=== PATIENT | male | born 1970 | race African-American/Black ===

== ENCOUNTER 2017-06-24 09:47 | Emergency (ER) | payer OTHER, SELFPAY ==
--- NOTE | 2017-06-24 12:27 | EDPHYS ---
Physician Documentation [facility] Name: Tevin Chacon III Age: 46 yrs Sex: Male : 1970 Arrival Date: 06/24/2017 Time: 09:50 Bed 11 Private MD: Suzie De Leon F ED Physician Alfredo Dick HPI: 06/24 11:00 This 46 yrs old Black Male presents to ER via Ambulatory with complaints of Knee Pain, cp Leg Swelling. 11:00 The patient presents with pain, that is acute, swelling, tenderness. The complaints cp affect the left knee. Context: resulted from twisting of the extremity, getting out car, the patient can fully bear weight, the patient is able to ambulate, with mild difficulty. 11:00 Onset: The symptoms/episode began/occurred 2 day(s) ago. Associated signs and symptoms: cp Pertinent negatives calf tenderness, fever, numbness, warmth. Treatment prior to arrival includes: no previous treatment. Historical: - Allergies: 10:19 No Known Allergies; aj - Home Meds: 10:19 None [Active]; aj - PMHx: 10:19 Sickle Cell; aj - PSHx: 10:19 None; aj - Immunization history:: Adult Immunizations up to date. - Social history:: Smoking status: Patient/guardian denies using tobacco. ROS: 11:05 Constitutional: Negative for body aches, chills, fever, poor PO intake. cp 11:05 Eyes: Negative for injury, pain, redness, and discharge. cp 11:05 ENT: Negative for drainage from ear(s), ear pain, sore throat, difficulty swallowing, difficulty handling secretions. 11:05 Cardiovascular: Negative for chest pain, edema, palpitations. 11:05 Respiratory: Negative for cough, shortness of breath, wheezing. 11:05 Abdomen/GI: Negative for abdominal pain, nausea, vomiting, and diarrhea, constipation, black/tarry stool, rectal bleeding. 11:05 Back: Negative for pain at rest, pain with movement, radiated pain. 11:05 MS/extremity: Positive for pain, swelling, of the left knee, Negative for decreased range of motion, warmth. 11:05 Skin: Negative for cellulitis, rash. 11:05 Neuro: Negative for numbness, tingling. 11:05 All other systems are negative. Exam: 11:12 Constitutional: The patient appears in no acute distress, alert, awake, non-toxic, well cp developed, well nourished. 11:12 Head/Face: Normocephalic, atraumatic. cp 11:12 Eyes: Periorbital structures: appear normal, Conjunctiva: normal, no exudate, no injection, Sclera: no appreciated abnormality, Lids and lashes: appear normal, bilaterally. 11:12 ENT: External ear(s): are unremarkable, Nose: is normal, Mouth: is normal, Posterior pharynx: is normal, airway is patent. 11:12 Chest/axilla: Inspection: normal. 11:12 Cardiovascular: Rate: normal. 11:12 Respiratory: the patient does not display signs of respiratory distress, Respirations: normal, no use of accessory muscles, no retractions, no splinting, no tachypnea, labored breathing, is not present. 11:12 Abdomen/GI: Exam negative for discomfort, distension, guarding, Inspection: abdomen appears normal. 11:12 Back: pain, is absent, ROM is normal. 11:12 Musculoskeletal/extremity: Joints: All joints are normal except the left knee displays swelling, tenderness, Weight bearing: able to fully bear weight. 11:12 Skin: cellulitis, is not appreciated, no rash present. Vital Signs: 10:19 BP 118 / 79; Pulse 88; Resp 17; Temp 98.0; Pulse Ox 95% on R/A; Weight 124.74 kg; aj Height 6 ft. 4 in. (193.04 cm); Pain 4/10; 12:40 BP 124 / 74; Pulse 89; Resp 16; Pulse Ox 97% on R/A; Pain 4/10; iw 10:19 Body Mass Index 33.47 (124.74 kg, 193.04 cm) aj MDM: 10:37 Patient medically screened. cp 11:00 Differential diagnosis: dislocation, closed fracture, DVT, septic joint, effusion. cp 12:25 Data reviewed: vital signs, nurses notes, radiologic studies, plain films. cp 12:25 Test interpretation: by ED physician or midlevel provider: plain radiologic studies. cp Counseling: I had a detailed discussion with the patient and/or guardian regarding: the historical points, exam findings, and any diagnostic results supporting the discharge/admit diagnosis, radiology results, the need for outpatient follow up, a orthopedic surgeon, to return to the emergency department if symptoms worsen or persist or if there are any questions or concerns that arise at home. 06/24 10:51 Order name: XRAY Knee LEFT 3 view cp Administered Medications: No medications were administered Disposition: 06/24/17 12:26 Discharged to Home. Impression: Pain in left knee. - Condition is Stable. - Discharge Instructions: Elastic Bandage and RICE, Knee Pain. - Prescriptions for Tramadol 50 mg Oral Tablet - take 1 tablet by ORAL route every 8 hours as needed; 20 tablet. - Work release form, Medication Reconciliation Form, Thank You Letter, Antibiotic Education, Prescription Opioid Use form. - Follow up: Jonathan Peres MD; When: 2 - 3 days; Reason: Recheck today's complaints. - Problem is new. - Symptoms are unchanged. Addendum: 06/25/2017 22:19 Co-signature as Attending Physician, Alfredo Dick MD I agree with the assessment and k dr plan of care. Signatures: Dispatcher [employer] EDNE Izabela Lorenz, RN RN Alfredo Chavez MD MD kdr Pam Alves RN RN iw Adam Whaley PA PA cp Corrections: (The following items were deleted from the chart) 06/24 12:42 12:26 06/24/2017 12:26 Discharged to Home. Impression: Pain in left knee. Condition is iw Stable. Forms are Medication Reconciliation Form, Thank You Letter, Antibiotic Education, Prescription Opioid Use. Follow up: Jonathan Peres; When: 2 - 3 days; Reason: Recheck today's complaints. Problem is new. Symptoms are unchanged. cp
--- NOTE | 2017-06-24 12:27 | ER ---
Nurse's Notes [facility] Name: Tevin Chacon III Age: 46 yrs Sex: Male : 1970 Arrival Date: 06/24/2017 Time: 09:50 Bed 11 Private MD: Suzie De Leon F Diagnosis: Pain in left knee Presentation: 06/24 10:18 Presenting complaint: Patient states: Left knee pain and swelling since Thursday. Patient aj reported feeling pain and swelling to knee after getting out of vehicle. Reports popping in left knee for 1 week. Transition of care: patient was not received from another setting of care. Onset of symptoms was June 18, 2017. Care prior to arrival: None. 10:18 Method Of Arrival: Ambulatory aj 10:18 Acuity: SALMA 4 aj 12:42 Initial Sepsis Screen: Does the patient meet any 2 criteria? No. Patient's initial iw sepsis screen is negative. Does the patient have a suspected source of infection? No. Patient's initial sepsis screen is negative. Triage Assessment: 10:19 General: Appears in no apparent distress. comfortable, Behavior is calm, cooperative, aj appropriate for age. Pain: Complains of pain in left knee. Pain: Pain currently is 4 out of 10 on a pain scale. Neuro: Level of Consciousness is awake, alert, obeys commands, Oriented to person, place, time, situation, Appropriate for age. Respiratory: Airway is patent Respiratory effort is even, unlabored, Respiratory pattern is regular, symmetrical. Derm: Skin is intact, is healthy with good turgor, Skin is pink, warm \T\ dry. normal. Musculoskeletal: Reports pain in left knee. Historical: - Allergies: 10:19 No Known Allergies; aj - Home Meds: 10:19 None [Active]; aj - PMHx: 10:19 Sickle Cell; aj - PSHx: 10:19 None; aj - Immunization history:: Adult Immunizations up to date. - Social history:: Smoking status: Patient/guardian denies using tobacco. Screenin:43 Abuse screen: Denies threats or abuse. Denies injuries from another. Nutritional iw screening: No deficits noted. Tuberculosis screening: No symptoms or risk factors identified. Fall Risk None identified. Assessment: 10:42 General: Appears in no apparent distress. Behavior is calm, cooperative. Pain: iw Complains of pain in left knee. Neuro: Level of Consciousness is awake, alert, obeys commands, Oriented to person, place, time, Tax Compliance Agent are equal bilaterally Moves all extremities. Full function. Cardiovascular: Patient's skin is warm and dry. Respiratory: Respiratory effort is even, unlabored, Respiratory pattern is regular. Derm: Skin is normal. Musculoskeletal: Range of motion: intact in all extremities, Reports pain in left knee popping in left knee X 1 week. 12:40 Reassessment: Patient appears in no apparent distress at this time. Patient and/or iw family updated on plan of care and expected duration. Pain level reassessed. Patient is alert, oriented x 3, equal unlabored respirations, skin warm/dry/pink. Vital Signs: 10:19 BP 118 / 79; Pulse 88; Resp 17; Temp 98.0; Pulse Ox 95% on R/A; Weight 124.74 kg; aj Height 6 ft. 4 in. (193.04 cm); Pain 4/10; 12:40 BP 124 / 74; Pulse 89; Resp 16; Pulse Ox 97% on R/A; Pain 4/10; iw 10:19 Body Mass Index 33.47 (124.74 kg, 193.04 cm) aj ED Course: 09:50 Patient arrived in ED. rg4 09:51 Suzie De Leon MD is Private Physician. rg4 10:19 Triage completed. aj 10:19 Arm band placed on left wrist. Patient placed in waiting room, Patient notified of wait aj time. 10:19 Patient has correct armband on for positive identification. iw 10:34 Pam Alves, LYNSEY is Primary Nurse. iw 10:37 Adam Whaley PA is PHCP. cp 10:37 Alfredo Dick MD is Attending Physician. cp 11:56 XRAY Knee LEFT 3 view In Process Unspecified. EDMS 12:25 Jonathan Peres MD is Referral Physician. cp 12:41 No provider procedures requiring assistance completed. Patient did not have IV access iw during this emergency room visit. Administered Medications: No medications were administered Outcome: 12:26 Discharge ordered by MD. cp 12:41 Discharged to home ambulatory. iw 12:41 Condition: good 12:41 Discharge instructions given to patient, Instructed on discharge instructions, follow up and referral plans. medication usage, Demonstrated understanding of instructions, follow-up care, medications, Prescriptions given X 1. 12:42 Patient left the ED. iw Signatures: Dispatcher [employer] Izablea Werner RN RN aj Williams, Irene, RN RN iw Page, Corey, PA PA cp Garcia, Rubi rg4
[2017-06-24 12:45] VITALS: TEMP 98
[2017-06-24 12:47] VITALS: BP 124/74; O2SAT 97
--- NOTE | 2017-06-24 12:47 | RAD REPORT ---
EXAM DESCRIPTION: RAD - Knee Left 3 View - 06/24/2017 11:54 am CLINICAL HISTORY: Knee pain and swelling COMPARISON: July 2011 FINDINGS: No fracture is identifiable. No dislocation or periosteal reaction. Medial compartment дмитрий rowing is present with small marginal spurs identifiable. The medial compartment changes are progress kj from 2012. Overall increased bone density is present matching the previously detailed sickle cell changes. No one single or defined area of bone infarction seen. Moderate joint effusion is present.N o air or foreign body in the soft tissues. Patella marginal spurring changes are new from comparison. No air or foreign body in the soft tissues. IMPRESSION: Sickle cell changes to the bones of the left knee. No acute bone process identifiable. Degenerative changes in the medial compartment and along the patella articular margins are moderate f or age and progressive from 2012. Moderate joint effusion. Clinical concerns for internal derangement or occult bony injury could be further assessed with MR im aging.
== END 2017-06-24 12:42 | disposition home or self-care (01) ==
LOC: ER 09:47
DX: M25.562 Pain in left knee (principal)
CPT/HCPCS: 99283

== ENCOUNTER 2018-03-20 23:52 | Inpatient (IN) | payer BC, OTHER ==
[2018-03-21] MEDS ORDERED: MORPHINE 4 MG/ML SYR ONE (00:17)
[2018-03-21] MEDS ORDERED: ONDANSETRON 4 MG/2 ML VIAL ONE (00:17)
[2018-03-21] MEDS ORDERED: ASPIRIN 81 MG CHEWABLE TABLET ONE ×2 (00:17→00:23)
[2018-03-21] MEDS ORDERED: NA CHLORIDE 0.9% 1,000 ML ONE (00:17)
[2018-03-21 00:18] LABS: Absolute Lymphocytes (CBC) 5.1 K/uL (0.7-4.9); Absolute Monocytes 1.6 K/uL (0.1-1.3); Absolute Neutrophil 9.3 K/uL (1.8-8.0); Basophils % 0.5 % (0-1.3); Hematocrit 31.9 % (39.6-49.0); Lymphocytes % 31.2 % (15.3-44.8); MPV 9.3 fL (7.6-11.3); Monocytes % 9.7 % (3.3-12.3); RBC Red Blood Cell Count 3.98 M/uL (4.33-5.43)
[2018-03-21 00:22] LABS: Protime INR 1.04
[2018-03-21 00:42] LABS: ALT/SGPT 32 U/L (12-78); AST/SGOT 38 U/L (15-37); Albumin 3.8 g/dL (3.4-5.0); Alkaline Phosphatase 132 U/L (45-117); BUN Blood Urea Nitrogen 10 mg/dL (7-18); Bicarbonate 27 mmol/L (21-32); Bilirubin Direct 0.5 mg/dL (0-0.2); Bilirubin Total 3.2 mg/dL (0.2-1.0); Glucose Level 120 mg/dL (74-106); Lipase 179 U/L (73-393); Magnesium 2.3 mg/dL (1.8-2.4); NT PRO-BNP 22 pg/mL (<125); Potassium 4.1 mmol/L (3.5-5.1); Sodium Level 144 mmol/L (136-145); Troponin (Emerg Dept Use Only) < 0.02 ng/mL (0.0-0.045)
[2018-03-21 00:50] LABS: Platelet Estimate ADEQ
[2018-03-21 00:51] LABS: Anisocytosis 2+; Blood Morphology Comment NOTED (NOT SEEN); Platelets, Giant 1+; Poikilocytosis 1+; Target Cells 1+
[2018-03-21 02:53] LABS: Urine Blood NEGATIVE (NEG); Urine Glucose NEGATIVE (NEG); Urine Protein NEGATIVE (NEG); Urine Specific Gravity 1.015 (1.005-1.030); Urine pH 6.5 (5.0-7.0)
[2018-03-21 03:01] LABS: Barbiturates NEGATIVE (NEGATIVE); Benzodiazepines NEGATIVE (NEGATIVE); Cocaine NEGATIVE (NEGATIVE); METHAMPHETAM NEGATIVE (NEGATIVE); Methadone NEGATIVE (NEGATIVE); Opiates NEGATIVE (NEGATIVE); Phencyclidine NEGATIVE (NEGATIVE); THC Cannibis NEGATIVE (NEGATIVE)
[2018-03-21] MEDS ORDERED: PROMETHAZINE 25 MG/ML VIAL ONE (03:03)
[2018-03-21] MEDS ORDERED: HYDROMORPHONE HCL 1 MG/ML INJ ONE (03:03)
--- NOTE | 2018-03-21 03:36 | EDPHYS ---
Physician Documentation [facility] Name: Tevin Chacon III Age: 47 yrs Sex: Male : 1970 Arrival Date: 03/20/2018 Time: 23:54 Bed 5 Private MD: ED Physician Tacho Anderson HPI: 03/21 00:05 This 47 yrs old Black Male presents to ER via Ambulatory with unknown complaint. pkl 00:05 The patient or guardian reports chest pain that is located primarily in the substernal pkl area. Onset: just prior to arrival, 1 hour(s) ago. The pain does not radiate. Associated signs and symptoms: Pertinent positives: shortness of breath. The chest pain is described as a pressure. The patient has not experienced similar symptoms in the past. Historical: - Allergies: 03/20 23:59 No Known Allergies; la1 - Home Meds: 23:59 None [Active]; la1 - PMHx: 23:59 Sickle Cell; la1 - PSHx: 23:59 None; la1 - Immunization history:: Adult Immunizations up to date. - Social history:: Smoking status: Patient/guardian denies using tobacco. - Ebola Screening: : No symptoms or risks identified at this time. ROS: 03/21 00:05 Eyes: Negative for injury, pain, redness, and discharge, ENT: Negative for injury, pkl pain, and discharge, Neck: Negative for injury, pain, and swelling. Cardiovascular: Positive for chest pain. Respiratory: Positive for shortness of breath. Abdomen/GI: Negative for abdominal pain, nausea, vomiting, and diarrhea. Back: Negative for acute changes. : Negative for urinary symptoms. MS/extremity: Negative for acute changes. Skin: Negative for rash. Neuro: Negative for altered mental status. Exam: 00:05 Head/Face: Normocephalic, atraumatic. Eyes: Pupils equal round and reactive to light, pkl extra-ocular motions intact. Lids and lashes normal. Conjunctiva and sclera are non-icteric and not injected. Cornea within normal limits. Periorbital areas with no swelling, redness, or edema. ENT: Nares patent. No nasal discharge, no septal abnormalities noted. Tympanic membranes are normal and external auditory canals are clear. Oropharynx with no redness, swelling, or masses, exudates, or evidence of obstruction, uvula midline. Mucous membranes moist. Neck: Trachea midline, no thyromegaly or masses palpated, and no cervical lymphadenopathy. Supple, full range of motion without nuchal rigidity, or vertebral point tenderness. No Meningismus. Chest/axilla: Normal chest wall appearance and motion. Nontender with no deformity. No lesions are appreciated. Cardiovascular: Regular rate and rhythm with a normal S1 and S2. No gallops, murmurs, or rubs. Normal PMI, no JVD. No pulse deficits. Respiratory: Lungs have equal breath sounds bilaterally, clear to auscultation and percussion. No rales, rhonchi or wheezes noted. No increased work of breathing, no retractions or nasal flaring. Abdomen/GI: Soft, non-tender, with normal bowel sounds. No distension or tympany. No guarding or rebound. No evidence of tenderness throughout. Back: No spinal tenderness. No costovertebral tenderness. Full range of motion. Skin: Warm, dry with normal turgor. Normal color with no rashes, no lesions, and no evidence of cellulitis. MS/ Extremity: Pulses equal, no cyanosis. Neurovascular intact. Full, normal range of motion. Neuro: Awake and alert, GCS 15, oriented to person, place, time, and situation. Cranial nerves II-XII grossly intact. Motor strength 5/5 in all extremities. Sensory grossly intact. Cerebellar exam normal. Normal gait. Vital Signs: 03/20 23:59 BP 158 / 95; Pulse 85; Resp 18; Temp 98.7; Pulse Ox 96% on R/A; Weight 122.47 kg; la1 Height 6 ft. 4 in. (193.04 cm); Pain 9/10; 02 00:17 BP 150 / 86; Pulse 89; Resp 20; Pulse Ox 100% on 2 lpm NC; tl2 01:33 BP 123 / 73; Pulse 80; Resp 18; Pulse Ox 95% on R/A; tl2 02:16 BP 129 / 87; Pulse 89; Resp 19; Pulse Ox 96% on R/A; tl2 03:01 BP 146 / 88; Pulse 80; Resp 18; Pulse Ox 96% on R/A; tl2 03/20 23:59 Body Mass Index 32.87 (122.47 kg, 193.04 cm) la1 MDM: 03/20 23:54 Patient medically screened. pk 03/21 02:58 Data reviewed: vital signs, nurses notes, lab test result(s), EKG, radiologic studies, pkl plain films. 06:17 ED course: Left message in Dr. De Leon's answering machine regarding admission ( pk Observation ). 03/21 00:00 Order name: Basic Metabolic Panel; Complete Time: 00:43 03/21 00:00 Order name: CBC with Diff; Complete Time: 03:00 03/21 00:00 Order name: LFT's; Complete Time: 00:43 03/21 00:00 Order name: Magnesium; Complete Time: 00:43 03/21 00:00 Order name: NT PRO-BNP; Complete Time: 00:43 03/21 00:00 Order name: PT-INR; Complete Time: 00:44 03/21 00:00 Order name: Troponin (emerg Dept Use Only); Complete Time: 00:43 03/21 00:04 Order name: UDS; Complete Time: 03:14 pkl 03/21 00:08 Order name: Retic Count [facility] 03/21 00:31 Order name: D-Dimer; Complete Time: 00:44 EDMS 02 00:31 Order name: Lipase; Complete Time: 00:43 EDMS 02 00:31 Order name: Retic Count; Complete Time: 03:00 EDMS 02 00:00 Order name: XRAY Chest (1 view) 03/21 00:00 Order name: EKG; Complete Time: 00:03 03/21 00:00 Order name: Cardiac monitoring; Complete Time: 00:01 02 00:00 Order name: EKG - Nurse/Tech; Complete Time: 00:01 03/21 00:00 Order name: IV Saline Lock; Complete Time: 00:01 03/21 00:45 Order name: CT Chest For PE Angio pk 03/21 00:48 Order name: Manual Differential; Complete Time: 03:00 EDMS 03/21 02:44 Order name: Troponin (emerg Dept Use Only); Complete Time: 03:15 tl2 03/21 02:49 Order name: Urine Dipstick--Ancillary (enter results); Complete Time: 03:00 03/21 07:15 Order name: Troponin I EDPR 03/21 00:00 Order name: Labs collected and sent; Complete Time: 00: 03/21 00:00 Order name: O2 Per Protocol; Complete Time: 00: 03/21 00:00 Order name: O2 Sat Monitoring; Complete Time: 00: 03/21 02:44 Order name: EKG - Nurse/Tech; Complete Time: 02:56 tl2 Administered Medications: 00:15 Drug: NS 0.9% 1000 ml Route: IV; Rate: 100 ml/hr; Site: right antecubital; tl2 05:04 Follow up: IV Status: Infusion continued upon admission tl2 00:15 Drug: Aspirin 162 mg Route: PO; tl2 01:00 Follow up: Response: No adverse reaction tl2 00:16 Drug: morphine 4 mg Route: IVP; Site: right antecubital; tl2 01:00 Follow up: Response: No adverse reaction; Pain is decreased tl2 00:16 Drug: Zofran 4 mg Route: IVP; Site: right antecubital; tl2 01:00 Follow up: Response: No adverse reaction; Nausea is decreased tl2 02:56 Drug: Dilaudid 1 mg Route: IVP; Site: right antecubital; tl2 03:30 Follow up: Response: No adverse reaction; Pain is decreased tl2 02:58 Drug: Phenergan 12.5 mg Route: IVP; Site: right antecubital; tl2 03:30 Follow up: Response: No adverse reaction; Nausea is decreased tl2 Disposition: 03/21/18 03:36 Hospitalization ordered by Suzie De Leon for Observation. Preliminary diagnosis is Chest pain. Sickle cell crisis. - Bed requested for Telemetry/MedSurg (observation). - Status is Observation. sv - Condition is Stable. - Problem is new. - Symptoms are unchanged. UTI on Admission? No Signatures: Dispatcher [employer] EDPR Halle Levi RN RN kl Verde, Stephanie, RN RN sv Lam, Pin, MD MD pkl Chretien, Felicia, RN RN fc Attema, Lee, RN RN la1 Ladonna Gloria RN RN tl2 Corrections: (The following items were deleted from the chart) 00:31 00:04 D-DIMER+COAG.LAB.BRZ ordered. EDMS EDMS 00:31 00:08 LIPASE+C.LAB.BRZ ordered. EDMS EDMS 04:22 03:36 Hospitalization Ordered by Suzie De Leon MD for Observation. Preliminary fc diagnosis is Chest pain. Sickle cell crisis. Bed requested for Telemetry/MedSurg (observation). Status is Observation. Condition is Stable. Problem is new. Symptoms are unchanged. UTI on Admission? No. pkl 06:33 04:22 03/21/2018 03:36 Hospitalization Ordered by Suzie De Leon MD for Observation. kl Preliminary diagnosis is Chest pain. Sickle cell crisis. Bed requested for [facility] ER HOLD. Status is Observation. Condition is Stable. Problem is new. Symptoms are unchanged. UTI on Admission? No. fc 07:50 06:33 03/21/2018 03:36 Hospitalization Ordered by Suzie De Leon MD for Observation. sv Preliminary diagnosis is Chest pain. Sickle cell crisis. Bed requested for Telemetry/MedSurg (observation). Status is Observation. Condition is Stable. Problem is new. Symptoms are unchanged. UTI on Admission? No. kl
--- NOTE | 2018-03-21 03:36 | ER ---
Nurse's Notes [facility] Name: Tevin Chacon III Age: 47 yrs Sex: Male : 1970 Arrival Date: 03/20/2018 Time: 23:54 Bed 5 Private MD: Diagnosis: Chest pain. Sickle cell crisis Presentation: 03/20 23:58 Presenting complaint: Patient states: onset of chest pain and lower back pain that la1 started 35 minutes ago, pt states the back pain is how it feels when his sickle crisis is starting but the chest pain is new and different. Transition of care: patient was not received from another setting of care. Onset of symptoms was March 20, 2018. Risk Assessment: Do you want to hurt yourself or someone else? Patient reports no desire to harm self or others. Initial Sepsis Screen: Does the patient meet any 2 criteria? No. Patient's initial sepsis screen is negative. Does the patient have a suspected source of infection? No. Patient's initial sepsis screen is negative. Care prior to arrival: None. 23:58 Method Of Arrival: Ambulatory la1 23:58 Acuity: SALMA 2 la1 Historical: - Allergies: 23:59 No Known Allergies; la1 - Home Meds: 23:59 None [Active]; la1 - PMHx: 23:59 Sickle Cell; la1 - PSHx: 23:59 None; la1 - Immunization history:: Adult Immunizations up to date. - Social history:: Smoking status: Patient/guardian denies using tobacco. - Ebola Screening: : No symptoms or risks identified at this time. Screenin/10 00:17 Abuse screen: Denies threats or abuse. Nutritional screening: No deficits noted. tl2 Tuberculosis screening: No symptoms or risk factors identified. Fall Risk None identified. Assessment: 00:17 General: Appears in no apparent distress. uncomfortable, Behavior is cooperative, tl2 appropriate for age, restless. Pain: Complains of pain in xyphoid area and mid-sternal area Pain does not radiate. Pain currently is 9 out of 10 on a pain scale. Pain: Complains of pain in epigastric, low back. Neuro: Level of Consciousness is awake, alert, obeys commands, Oriented to person, place, time, situation. Cardiovascular: Rhythm is sinus rhythm Chest pain is described as diffuse, quality is sharp, is located in epigastric area substernal area. Respiratory: Airway is patent Respiratory effort is even, unlabored, Respiratory pattern is regular, symmetrical. GI: Reports nausea. : No signs and/or symptoms were reported regarding the genitourinary system. Derm: Skin is pink, warm \T\ dry. 01:34 Reassessment: Patient appears in no apparent distress at this time. Patient and/or tl2 family updated on plan of care and expected duration. Pain level reassessed. Patient is alert, oriented x 3, equal unlabored respirations, skin warm/dry/pink. Patient states feeling better. 02:16 Reassessment: Patient appears in no apparent distress at this time. Patient and/or tl2 family updated on plan of care and expected duration. Pain level reassessed. Patient is alert, oriented x 3, equal unlabored respirations, skin warm/dry/pink. 02:45 Reassessment: Pt c/o pain after returning from bathroom, notified, new order see APR.tl2 Vital Signs: 03/20 23:59 BP 158 / 95; Pulse 85; Resp 18; Temp 98.7; Pulse Ox 96% on R/A; Weight 122.47 kg; la1 Height 6 ft. 4 in. (193.04 cm); Pain 9/10; 02 00:17 BP 150 / 86; Pulse 89; Resp 20; Pulse Ox 100% on 2 lpm NC; tl2 01:33 BP 123 / 73; Pulse 80; Resp 18; Pulse Ox 95% on R/A; tl2 02:16 BP 129 / 87; Pulse 89; Resp 19; Pulse Ox 96% on R/A; tl2 03:01 BP 146 / 88; Pulse 80; Resp 18; Pulse Ox 96% on R/A; tl2 02 23:59 Body Mass Index 32.87 (122.47 kg, 193.04 cm) la1 Vitals: 00:17 Cardiac Rhythm Assessment Sinus rhythm. tl2 01:33 Cardiac Rhythm Assessment Sinus rhythm. tl2 ED Course: 03/20 23:54 Patient arrived in ED. tl2 23:54 Tacho Anderson MD is Attending Physician. pkl 23:59 Triage completed. la1 23:59 Arm band placed on left wrist. EKG completed in triage. Results shown to MD. la1 03/21 00:00 Inserted saline lock: 20 gauge in right antecubital area, using aseptic technique. lp1 Blood collected. 00:01 Ladonna Gloria, RN is Primary Nurse. tl2 00:17 Patient has correct armband on for positive identification. Placed in gown. Bed in low tl2 position. Call light in reach. Side rails up X 1. Adult w/ patient. 00:22 X-ray completed. Portable x-ray completed in exam room. Patient tolerated procedure sg4 well. 00:30 XRAY Chest (1 view) In Process Unspecified. EDMS 00:43 Notified ED physician of a critical lab result(s). d dimer 3666. fc 01:[address] via stretcher. kw1 01:18 CT completed. Patient tolerated procedure well. Patient moved back from CT. kw1 01:31 CT Chest For PE Angio In Process Unspecified. EDMS 01:31 CT completed. Patient tolerated procedure well. Patient moved back from CT. kw1 03:35 Suzie De Leon MD is Hospitalizing Provider. pkl 05:03 No provider procedures requiring assistance completed. Patient admitted, IV remains in tl2 place. Administered Medications: 00:15 Drug: NS 0.9% 1000 ml Route: IV; Rate: 100 ml/hr; Site: right antecubital; tl2 05:04 Follow up: IV Status: Infusion continued upon admission tl2 00:15 Drug: Aspirin 162 mg Route: PO; tl2 01:00 Follow up: Response: No adverse reaction tl2 00:16 Drug: morphine 4 mg Route: IVP; Site: right antecubital; tl2 01:00 Follow up: Response: No adverse reaction; Pain is decreased tl2 00:16 Drug: Zofran 4 mg Route: IVP; Site: right antecubital; tl2 01:00 Follow up: Response: No adverse reaction; Nausea is decreased tl2 02:56 Drug: Dilaudid 1 mg Route: IVP; Site: right antecubital; tl2 03:30 Follow up: Response: No adverse reaction; Pain is decreased tl2 02:58 Drug: Phenergan 12.5 mg Route: IVP; Site: right antecubital; tl2 03:30 Follow up: Response: No adverse reaction; Nausea is decreased tl2 Outcome: 03:36 Decision to Hospitalize by Provider. pkl 05:03 Admitted to ER Hold. Please see [facility] for further documentation. tl2 05:03 Condition: stable 05:03 Discharge instructions given to patient, Instructed on the need for admit. 07:50 Patient left the ED. sv Signatures: Dispatcher [employer] EDCarlota Mcleod, LYNSEY RN Tacho Duong MD MD pkl Yesi Lorenz RN RN Samira Georges RN RN lp1 Dallas Phelan RN RN Ladonna Whittington RN RN tl2 Halle Morin Susana 4
[2018-03-21] MEDS ORDERED: ONDANSETRON 4 MG/2 ML VIAL IV PRN (03:39)
[2018-03-21 05:15] VITALS: BMI 32.8
[2018-03-21] MEDS: HYDROMORPHONE HCL 0.5 MG/0.5 ML INJ IV PRN ×2 (05:36→09:24)
[2018-03-21] MEDS: NA CHLORIDE 0.9% 1,000 ML IV SCH ×3 (05:48→22:35)
[2018-03-21] MEDS ORDERED: HYDROMORPHONE HCL 0.5 MG/0.5 ML INJ ONE (05:48)
[2018-03-21] MEDS: ASPIRIN EC 81 MG TAB PO SCH (08:20)
[2018-03-21] MEDS ORDERED: INFLUENZA VACCINE (for 3y+) 0.5 ML DOSE IMVAC ONE (09:00)
--- NOTE | 2018-03-21 09:03 | RAD REPORT ---
EXAM DESCRIPTION: RAD - Chest Single View - 03/21/2018 12:25 am CLINICAL HISTORY: Chest pain COMPARISON: Portable chest December 2011 TECHNIQUE: AP portable chest image was obtained 0023 hours . FINDINGS: No focal consolidation identifiable. Retrocardiac left base is more limited in assessment. Prominent pulmonary vasculature noted. Lung markings are mildly prominent but not clearly different from the comparison study. Pulmonary artery hypertension is questioned. Cardiomegaly is present but n ot substantially different from comparison. No measurable pleural effusion and no pneumothorax. Lucen t and sclerotic changes in the right humeral head are noted. This is probably AVN. No acute aortic fi ndings suspected. IMPRESSION: No peripheral consolidation to suspect bacterial pneumonia. Retrocardiac left base asses sment is limited. Possible pulmonary artery hypertension. The mild edema or volume overload are not excluded. 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
--- NOTE | 2018-03-21 10:53 | EKG ---
Test Date: 2018-03-20 Test Time: 23:59:01 Economic Adviser: ESVIN MEASUREMENT RESULTS: Intervals: Rate: 80 MS: 164 QRSD: 88 QT: 382 QTc: 440 [place]: P: 57 MS: 164 QRS: 33 T: 24 INTERPRETIVE STATEMENTS: Normal sinus rhythm with sinus arrhythmia Normal ECG Compared to ECG 12/27/2011 12:56:02 T-wave abnormality no longer present Electronically Signed On 03-21-18 10:52:34 PUBLICATION DISTRIBUTOR by Juan C Dean
--- NOTE | 2018-03-21 10:53 | EKG ---
Test Date: 2018-03-21 Test Time: 02:51:16 Secretary: DAGOBERTO MEASUREMENT RESULTS: Intervals: Rate: 80 MN: 144 QRSD: 94 QT: 374 QTc: 431 [place]: P: 59 MN: 144 QRS: 28 T: 33 INTERPRETIVE STATEMENTS: Normal sinus rhythm Normal ECG Compared to ECG 03/20/2018 23:59:01 Sinus arrhythmia no longer present Electronically Signed On 03-21-18 10:52:27 SYSTEM CONTROLLER by Juan C Dean
[2018-03-21] MEDS ORDERED: HYDROMORPHONE HCL 1 MG/ML INJ IV PRN (11:17)
[2018-03-21] MEDS ORDERED: FENTANYL CITR 100 MCG/2 ML IV PRN ×2 (11:43→14:25)
[2018-03-21] MEDS: CEFTRIAXONE/SWI 1gm 1 GM/10 ML SYR IVP SCH (13:13)
[2018-03-21] MEDS ORDERED: FENTANYL CITR 100 MCG/2 ML IV ONE (14:15)
[2018-03-21] MEDS: FENTANYL 25 MCG/PATCH TD SCH (17:28)
[2018-03-21] MEDS: HYDROMORPHONE HCL 1 MG/ML INJ IV PRN ×3 (17:28→22:35)
[2018-03-21] MEDS: ACETAMINOPHEN 500 MG TAB PO PRN (17:29)
--- NOTE | 2018-03-21 23:40 | HP ---
Date of Admission: 03/21/2018 History Of Present Illness: A 47-year-old male with history of sickle cell disease. He rarely would have any crisis. He has not had one for many years now. However, he came to the emergency room com plaining of pain all over his chest, severe, bad enough, about 7-9/10 that started with him few hour s before his arrival. He also had some knee and joint pains on different joints. The patient does n ot give any history of any fever or chills, any cough, urinary tract infection, or any gastrointestin al symptoms other than his pains all over. Past Medical History: Sickle cell anemia with rare crisis. Review of Systems: Skeletomuscular: As above. Cardiovascular: No complaint. Respiratory: No complaint. Neurological: No complaint. Genitourinary: No complaint. Gastrointestinal: No complaint. Medications: The patient is taking folic acid at home. Allergies: NO KNOWN DRUG ALLERGIES. Social History: No smoking, alcohol, or drug abuse history. Physical Examination: General: The patient is in distress from his chest pain and joint pains all over. Vital Signs: His blood pressure is 125/60, pulse 88, temperature 99.8, room air pulse oximetry at 96 . Heart: Regular rate and rhythm. Chest: Lungs are clear to auscultation. Abdomen: Soft, nontender. No hepatosplenomegaly. Bowel sounds are normoactive. Extremities: No edema. No cyanosis. Peripheral pulses are felt. Joints show mild warmness on both knees. Neurological: Alert and oriented x4. Grossly intact. Imaging: The patient had chest x-ray, showed no acute pathology. Possible avascular necrosis of the right humeral head. EKG showed normal sinus rhythm with sinus arrhythmia, normal EKG. Chest CT rep orted to me by the ER physician as nonrevealing. Report is still pending from Radiology. Laboratory Data: White cell count 16.4, hemoglobin 10.6, hematocrit 31.9, platelets 248, neutrophils 9.3. The patient's sickle cells 1+, high. Reticulocyte count 0.24, high. D-dimer 3666. Chemistry : Chloride 111, glucose 120, total bilirubin 3.2, direct 0.5. Cardiac enzyme, troponin less than 0. 02. Assessment/plan: Sickle cell crisis. The patient is being admitted for pain control, hydration, oxy gen, and also because of a possible occult infection may have caused that for him. We will put him I V Rocephin. We will instruct the nurse should his temperature go more than 100 Fahrenheit to go ahea d and draw blood cultures. Look orders for details. CARON/MARK Voice ID: [id number]
[2018-03-22] MEDS: HYDROMORPHONE HCL 1 MG/ML INJ IV PRN ×8 (01:18→23:05)
[2018-03-22] MEDS: ACETAMINOPHEN 500 MG TAB PO PRN ×3 (06:27→17:15)
[2018-03-22 07:36] LABS: Absolute Lymphocytes (CBC) 1.9 K/uL (0.7-4.9); Absolute Monocytes 2.3 K/uL (0.1-1.3); Absolute Neutrophil 18.3 K/uL (1.8-8.0); Basophils % 0.1 % (0-1.3); Eosinophils % 0.1 % (0-4.4); Hematocrit 28.3 % (39.6-49.0); Lymphocytes % 8.4 % (15.3-44.8); MPV 9.2 fL (7.6-11.3); Monocytes % 10.2 % (3.3-12.3); RBC Red Blood Cell Count 3.58 M/uL (4.33-5.43)
[2018-03-22 07:46] LABS: BUN Blood Urea Nitrogen 9 mg/dL (7-18); Bicarbonate 26 mmol/L (21-32); Glucose Level 111 mg/dL (74-106); Potassium 3.8 mmol/L (3.5-5.1); Sodium Level 138 mmol/L (136-145)
[2018-03-22 08:06] LABS: Anisocytosis 1+; Blood Morphology Comment NOTED (NOT SEEN); Platelet Estimate DECR; Platelets, Giant PRESENT
[2018-03-22] MEDS: CEFTRIAXONE/SWI 1gm 1 GM/10 ML SYR IVP SCH (08:55)
[2018-03-22] MEDS: ASPIRIN EC 81 MG TAB PO SCH (08:55)
--- NOTE | 2018-03-22 10:26 | RAD REPORT ---
EXAM DESCRIPTION: RAD - Chest Single View - 03/22/2018 10:13 am CLINICAL HISTORY: fever Chest pain. COMPARISON: Chest Single View dated 03/21/2018; CHEST SINGLE VIEW dated 12/28/2011; CHEST PA AND LAT 2 VIEW dated 12/27/2011; CHEST SINGLE VIEW dated 08/14/2008 FINDINGS: Portable technique limits examination quality. The lungs are grossly clear of acute infiltrate. Pulmonary vascular markings are prominent, a chronic condition in this patient. The heart is mildly enlarged in size.Sclerotic appearance to the bones is seen with AVN findings in both humeral heads, greater on the right. IMPRESSION: No acute finding is demonstrated.
[2018-03-22] MEDS: NA CHLORIDE 0.9% 1,000 ML IV SCH ×2 (11:25→20:24)
--- NOTE | 2018-03-22 16:41 | PN ---
Subjective: The patient's pain is markedly controlled now and he is better. No new complaints. Physical Examination: Vital Signs: Blood pressure 135/75, pulse 94, temperature 100.3, and his maximum temperature since y is 101.4 Fahrenheit. Heart: Regular rate and rhythm. Chest: Clear to auscultation. Abdomen: Soft, nontender. No hepatosplenomegaly. Bowel sounds are normoactive. Extremities: No edema. No cyanosis. Peripheral pulses are felt. Neurologic: Alert, oriented, nonfocal. Grossly intact. Laboratory Data: Influenza screen negative. Blood cultures pending. CBC; white cell count 22.5 with neutrophils at 81.2, hemoglobin 9.6, hematocrit 28.3, platelets 142. Chem-7 noted. Chest x-ray, no acute pathology. Assessment And Plan: 1.Sickle cell crisis. The patient's pain is controlled with current medication, hydration and oxyge n. 2.Anemia of sickle cell is controlled. 3.Leukocytosis with fever. At this time no source of infection is found. However, occult infection is still considered. Blood cultures are pending. We will continue the patient on IV Rocephin. Bailey riddle for details. MFS/MODL Voice ID: [id number] Report ID: [id number]
[2018-03-23] MEDS: ACETAMINOPHEN 500 MG TAB PO PRN ×3 (00:08→12:26)
[2018-03-23] MEDS: HYDROMORPHONE HCL 1 MG/ML INJ IV PRN ×6 (02:02→21:59)
[2018-03-23] MEDS: NA CHLORIDE 0.9% 1,000 ML IV SCH ×2 (05:08→16:27)
[2018-03-23 06:20] LABS: Absolute Lymphocytes (CBC) 3.9 K/uL (0.7-4.9); Absolute Monocytes 2.1 K/uL (0.1-1.3); Absolute Neutrophil 15.8 K/uL (1.8-8.0); Basophils % 0.4 % (0-1.3); Hematocrit 31.1 % (39.6-49.0); MPV 9.5 fL (7.6-11.3); Monocytes % 9.6 % (3.3-12.3)
[2018-03-23] MEDS: ASPIRIN EC 81 MG TAB PO SCH (08:38)
[2018-03-23] MEDS: CEFTRIAXONE/SWI 1gm 1 GM/10 ML SYR IVP SCH (08:38)
--- NOTE | 2018-03-23 11:03 | RAD REPORT ---
EXAM DESCRIPTION: CT - Chest For Pe Angio - 03/21/2018 1:55 am CLINICAL HISTORY: The patient is 47 years old and is Male; CHEAST PAIN COMPARISON: None. TECHNIQUE: Axial computed tomography images of the chest with intravenous contrast during the arterial phase of enhancement. Sagittal and coronal reformatted images were created and reviewed. This CT exam was perf ormed using one or more of the following dose reduction techniques: Automated exposure control, adjus tment of the mA and/or kV according to patient size, and/or use of iterative reconstruction technique . FINDINGS: Limited evaluation due to nonvisualization if the medial bilateral lower lobes. PULMONARY ARTERIES: Prominence of the main pulmonary arteries measuring 2.8 cm on the right and 2.7 c l on the left. No pulmonary embolism. AORTA: No acute findings. No thoracic aortic aneurysm. LUNGS: Mild bibasilar atelectasis versus interstitial edema. No mass. PLEURAL SPACE: Unremarkable. No significant effusion. No pneumothorax. HEART: Global cardiomegaly. No significant pericardial effusion. No evidence of RV dysfunction. BONES/JOINTS: Heterogenous bone mineralization with diffuse sclerotic changes of the vertebral bodies , rib cage as well as suggestion of bone infarct of the right proximal humerus. No acute fracture. No dislocation. SOFT TISSUES: Unremarkable. LYMPH NODES: Unremarkable. No enlarged lymph nodes. IMPRESSION: 1. No acute pulmonary embolism. 2. Global cardiomegaly. 3. Prominence of the main pulmonary arteries and tortuosity of the subsegmental pulmonary arterial tr ee suggestive of pulmonary arterial hypertension. 4. Heterogenous bone mineralization with sclerotic changes of the vertebral bodies and suggestion of avascular necrosis versus bone infarct in the right humeral head. Constellation of findings could be due to sickle cell disease. Whole-body one scan may be of diagnostic use. 5. Mild bibasilar atelectasis versus interstitial edema. Electronically signed by Geovanny Sunshine DO 03/21/2018 1:40 AM WHEEL AND CASTER REPAIRER Due to temporary technical issues with the PACS/Fluency reporting system, reports are being signed by the in house radiologist as a courtesy to ensure prompt reporting. The interpreting radiologist is f ully responsible for the content of the report.
--- NOTE | 2018-03-23 17:27 | PN ---
Subjective: The patient is feeling better today. His joint pains and chest pains have subsided sign ificantly, controlled on current medication. No other complaint. Physical Examination: Vital Signs: Blood pressure 130/70, pulse 114, temperature 101.2. Heart: Tachycardic. Regular rate. Chest: Clear to auscultation. Abdomen: Soft, nontender. No hepatosplenomegaly. Bowel sounds are normoactive. Extremities: No edema. No cyanosis. Peripheral pulses are felt. Neurologic: Alert, oriented, nonfocal. Grossly intact. Laboratory Data: Chest x-ray, no acute pathology. CBC 22,000. Hemoglobin 10.3, hematocrit 31.1, pl atelets 113. Reticulocyte count down to 5.25. Assessment And Plan: 1.Sickle cell crisis. The patient's pain is controlled. His hemoglobin is stable. Continue curren t management. 2.Leukocytosis. Blood cultures negative to date. However, we will go ahead and continue current an tibiotic. Expect discharge in 1-2 days. CARON/MARK Voice ID: [id number] Report ID: [id number]
[2018-03-24] MEDS: NA CHLORIDE 0.9% 1,000 ML IV SCH ×4 (01:06→21:22)
[2018-03-24] MEDS: HYDROMORPHONE HCL 1 MG/ML INJ IV PRN ×3 (03:06→21:25)
[2018-03-24 06:40] LABS: Absolute Lymphocytes (CBC) 0.7 K/uL (0.7-4.9); Absolute Neutrophil 13.6 K/uL (1.8-8.0); Basophils % 0.4 % (0-1.3); Hematocrit 29.6 % (39.6-49.0); Lymphocytes % 3.6 % (15.3-44.8); MPV 9.3 fL (7.6-11.3); Monocytes % 21.8 % (3.3-12.3); RBC Red Blood Cell Count 3.72 M/uL (4.33-5.43)
[2018-03-24] MEDS: ASPIRIN EC 81 MG TAB PO SCH (08:48)
[2018-03-24] MEDS: CEFTRIAXONE/SWI 1gm 1 GM/10 ML SYR IVP SCH (08:48)
[2018-03-24] MEDS: FENTANYL 25 MCG/PATCH TD SCH (08:49)
[2018-03-24 09:01] LABS: Anisocytosis 2+; Blood Morphology Comment NOTED (NOT SEEN); Hypochromasia 1+; Platelet Estimate ADEQ; Poikilocytosis SLIGHT; Polychromasia SLIGHT
--- NOTE | 2018-03-24 20:01 | PN ---
Subjective: The patient today is feeling well and is more comfortable. Objective: Vital Signs: His blood pressure 124/70, pulse 110, and temperature of 101.7. Heart: Tachycardic, regular rate. Chest: Clear to auscultation. Abdomen: Soft, nontender. No hepatosplenomegaly. Bowel sounds are normoactive. Extremities: No edema. No cyanosis. Peripheral pulses are felt. Neurologic: Alert, oriented, nonfocal. Grossly intact. Laboratory Data: White cell count dropped down to 18.3, hemoglobin 9.9, hematocrit 29.6, and platele ts 200. Blood cultures, no growth to date. Assessment And Plan: Sickle cell crisis. The patient is recovering gradually, so far no infection i s identified, but we will keep him on IV Rocephin, he is still having fever. However, I think his fe jasmin and leukocytosis in part a reaction to his crisis of sickle cell, we will keep monitoring the pat ient and continue current treatment. Expect discharge in 1 to 2 days. CARON/MARK Voice ID: [id number] Report ID: [id number]
[2018-03-25] MEDS: HYDROMORPHONE HCL 1 MG/ML INJ IV PRN ×3 (05:32→21:04)
[2018-03-25] MEDS: NA CHLORIDE 0.9% 1,000 ML IV SCH ×2 (05:40→20:54)
[2018-03-25 07:07] LABS: Absolute Lymphocytes (CBC) 0.6 K/uL (0.7-4.9); Absolute Monocytes 2.2 K/uL (0.1-1.3); Absolute Neutrophil 10.4 K/uL (1.8-8.0); Basophils % 0.7 % (0-1.3); Eosinophils % 0.3 % (0-4.4); Hematocrit 25.6 % (39.6-49.0); Lymphocytes % 4.3 % (15.3-44.8); MPV 9.6 fL (7.6-11.3); Monocytes % 16.7 % (3.3-12.3); RBC Red Blood Cell Count 3.23 M/uL (4.33-5.43)
[2018-03-25 07:21] LABS: BUN Blood Urea Nitrogen 20 mg/dL (7-18); Bicarbonate 28 mmol/L (21-32); Glucose Level 115 mg/dL (74-106); Potassium 3.9 mmol/L (3.5-5.1); Sodium Level 141 mmol/L (136-145)
[2018-03-25] MEDS: ASPIRIN EC 81 MG TAB PO SCH (08:10)
[2018-03-25] MEDS: CEFTRIAXONE/SWI 1gm 1 GM/10 ML SYR IVP SCH (08:11)
--- NOTE | 2018-03-25 12:41 | PN ---
Subjective: The patient is doing well, has no new complaints. His chest pains and joint pains have almost resolved or controlled by current treatment. Objective: Vital signs: His temperature is 100.7, blood pressure 120/70, pulse 100. Heart: Tachycardic, regular rate. Chest: Clear to auscultation. Abdomen: Soft, benign. Neurologic: Alert, oriented, and nonfocal. Grossly intact. Laboratory Data: White cell count dropped down to 15.3, hemoglobin 8.4, hematocrit 25.6. Platelets 101. Chem-7 also noted. Assessment And Plan: Sickle cell crisis. The patient is gradually recovering well. Microbiology is negative. Anemia secondary to sickle cell crisis. The patient is tolerating that well. White cell count and fever gradually dropping. Think that the patient will be ready to be discharged in 1-2 da ys. Continue current treatment. CARON/MARK Voice ID: [id number] Report ID: [id number]
[2018-03-26] MEDS: NA CHLORIDE 0.9% 1,000 ML IV SCH ×2 (05:55→16:53)
[2018-03-26] MEDS: CEFTRIAXONE/SWI 1gm 1 GM/10 ML SYR IVP SCH (08:33)
[2018-03-26] MEDS: ASPIRIN EC 81 MG TAB PO SCH (08:33)
[2018-03-26] MEDS: HYDROMORPHONE HCL 1 MG/ML INJ IV PRN ×3 (08:33→23:14)
[2018-03-26] MEDS: ACETAMINOPHEN 500 MG TAB PO PRN ×2 (08:33→18:08)
--- NOTE | 2018-03-26 12:48 | RAD REPORT ---
EXAM DESCRIPTION: Philip Single View03/26/2018 12:36 pm CLINICAL HISTORY: Chest pain COMPARISON: March 22, 2018 FINDINGS: Bibasilar lung opacities are present. Upper lobes appear clear. The heart is moderately enlarged IMPRESSION: Bibasilar lung opacities probably indicate pneumonia
--- NOTE | 2018-03-26 14:36 | PN ---
Subjective: The patient has no new complaints. He is still however spiking fever up to 101. Objective: Vital signs: His blood pressure 122/56, pulse 92. Heart: Regular rate and rhythm. Chest: Clear to auscultation. Abdomen: Soft, benign. Neurologic: Alert, oriented and grossly intact. Assessment And Plan: Sickle cell crisis with chest pain, which is controlled. However, the patient is still spiking fevers, but is gradually improving. We will continue current treatment. We will ch obed another chest x-ray. So far, his cultures have been negative. We will follow his CBC and chemis try. Look orders for details. MFS/MODL Voice ID: [id number] Report ID: [id number]
[2018-03-27] MEDS: NA CHLORIDE 0.9% 1,000 ML IV SCH ×2 (03:34→12:00)
[2018-03-27] MEDS: HYDROMORPHONE HCL 1 MG/ML INJ IV PRN ×2 (04:02→09:43)
[2018-03-27 05:56] LABS: Absolute Lymphocytes (CBC) 7.6 K/uL (0.7-4.9); Absolute Monocytes 0.9 K/uL (0.1-1.3); Absolute Neutrophil 6.3 K/uL (1.8-8.0); Basophils % 0.4 % (0-1.3); Eosinophils % 0.3 % (0-4.4); Hematocrit 23.3 % (39.6-49.0); Lymphocytes % 50.8 % (15.3-44.8); MPV 10.3 fL (7.6-11.3); Monocytes % 6.1 % (3.3-12.3)
[2018-03-27 06:01] LABS: BUN Blood Urea Nitrogen 12 mg/dL (7-18); Bicarbonate 28 mmol/L (21-32); Glucose Level 104 mg/dL (74-106); Potassium 3.7 mmol/L (3.5-5.1); Sodium Level 140 mmol/L (136-145)
[2018-03-27] MEDS: ASPIRIN EC 81 MG TAB PO SCH (08:34)
[2018-03-27 09:28] LABS: Anisocytosis 2+; Blood Morphology Comment NOTED (NOT SEEN); Platelet Estimate ADEQ; Polychromasia 2+; Target Cells 1+
[2018-03-27 09:29] LABS: Poikilocytosis 1+
[2018-03-27 10:38] VITALS: O2SAT 93
[2018-03-27] MEDS: ACETAMINOPHEN 500 MG TAB PO PRN (10:44)
[2018-03-27 13:13] VITALS: BP 131/66; TEMP 101.5
--- NOTE | 2018-03-27 13:22 | PN ---
Subjective: The patient is having no complaint. However, he is very determined to leave the [facility]. He said he does not want to stay and he wants to go home. Objective: Vital Signs: His blood pressure 127/66, pulse 97, temperature 102.6. Heart: Tachycardic, regular rate and rhythm. Chest: Clear to auscultation. Abdomen: Soft. Benign, nontender. Neurological Examination: Alert, oriented, nonfocal. Grossly intact. Skin Examination: No suspicious lesions or infection. Laboratory Data: The patient's white cell count 14.9, hemoglobin 7.6, hematocrit 23.3, and platelets 141. The patient's chemistry noted. Assessment/plan: Sickle cell crisis with acute chest syndrome. The patient is still spiking fever, which I think from the crisis at this time and infection could not be identified. His hemoglobin has dropped down to 7.6. I thinks patient needs to be transfused with 2 units of blood to help his oxyg en carrying capacity and to cut the cycle of crisis. However, the patient is very determined not to take blood transfusion and I have also asked for a Hematology, Dr. Gaspar to see him and he is refusing to see her. He is refusing blood transfusions and he wants to leave the hospital against medical ad vice. The patient is alert, fully oriented, knows what he is choosing. I have explained to him that decision might put him in more complications of the disease and even and he still said if it h appens, it happens I need to go and I need to leave. I would not stay in the hospital. I could not convince at this time this patient to stay and he is fully aware of his decision and is fully compete nt to make his own decisions. I would still have placed orders for the consult on the blood transfusions with hope that the patient changes his mind. CARON/MODL Voice ID: [id number] Report ID: [id number]
[2018-03-27] MEDS ORDERED: FOLIC ACID 1 MG TABLET PO SCH (21:00)
== END 2018-03-27 13:18 | disposition left against medical advice (07) | DRG 812 ==
LOC: ER 23:52 → ERHOLD 03-21 03:37 → 2ND 03-21 07:41 → OBSVTOIN 03-22 02:37
PROVIDERS: ADMIT Internal Medicine; ATTEND Internal Medicine
DX: D57.01 Hb-SS disease with acute chest syndrome (principal); D72.829 Elevated white blood cell count, unspecified; R50.81 Fever presenting with conditions classified elsewhere
CPT/HCPCS: 36415; 71045; 71275; 80048; 80076; 80307; 81003; 83605; 83690; 83735; 83880; 84484; 85025; 85044; 85379; 85610; 87040; 87804; 93005; 96361; 96374; 96375; 99285; G0378; J0696; J1170; J2405; J2550; J3010; J7030; Q9967

== ENCOUNTER 2021-12-06 11:13 | Emergency (ER) | payer BC ==
[2021-12-06] MEDS ORDERED: ASPIRIN 81 MG CHEWABLE TABLET ONE (11:32)
[2021-12-06] MEDS ORDERED: MORPHINE 4 MG/ML SYR ONE (11:45)
[2021-12-06 11:49] LABS: Protime INR 1.06
--- NOTE | 2021-12-06 12:15 | RAD REPORT ---
EXAM DESCRIPTION: Philip Single View12/06/2021 12:03 pm CLINICAL HISTORY: Chest pain COMPARISON: 2019 FINDINGS: Bilateral pulmonary opacities are without significant change. Heart is mildly to moderately enlarged IMPRESSION: Bilateral pulmonary opacities without significant change. I suspect most if not all of this is chronic.
[2021-12-06 12:19] LABS: Albumin 3.9 g/dL (3.4-5.0); Bilirubin Direct 0.6 mg/dL (0-0.2); Bilirubin Total 2.7 mg/dL (0.2-1.0); Magnesium 2.1 mg/dL (1.8-2.4); Potassium 3.9 mmol/L (3.5-5.1); Protein, Total 8.4 g/dL (6.4-8.2)
[2021-12-06 12:20] LABS: Absolute Lymphocytes (CBC) 5.2 K/uL (0.7-4.9); Hematocrit 31.6 % (39.6-49.0); Lymphocytes % 24.4 % (15.3-44.8); MCV 87.1 fL (80-100); MPV 9.3 fL (7.6-11.3); RBC Red Blood Cell Count 3.63 M/uL (4.33-5.43); Troponin High Sensitivity 19.2 pg/mL (<58.9)
--- NOTE | 2021-12-06 12:20 | RAD REPORT ---
EXAM DESCRIPTION: RAD - Knee Right 3 View - 12/06/2021 12:03 pm CLINICAL HISTORY: Right knee pain FINDINGS: No fracture or dislocation is seen. Lytic and sclerotic changes within the bones presumably related to the patient's known sickle cell
[2021-12-06 12:23] LABS: RBC Red Blood Cell Count 3.64 M/uL (4.33-5.43)
--- NOTE | 2021-12-06 13:01 | RAD REPORT ---
EXAM DESCRIPTION: US - Extremity Venous Uni Ltd - 12/06/2021 12:41 pm CLINICAL HISTORY: Pain and swelling COMPARISON: None. TECHNIQUE: Real-time sonographic evaluation of the left lower extremity deep venous system was perfo rmed. FINDINGS: Compressibility, flow augmentation, phasic flow and spontaneous flow were evaluated. The p osterior tibial vein was noncompressible consistent with thrombosis. The remaining veins including th e common femoral vein, femoral vein, popliteal vein, and greater saphenous vein were all compressible and patent. IMPRESSION: Positive for deep venous thrombosis in the posterior tibial vein. Preliminary results given to Adam Whaley in the ED by Izabela Cole
[2021-12-06 13:16] LABS: Blood Morphology Comment NOTED (NOT SEEN); Platelet Estimate ADEQ; Polychromasia 1+; Stomatocytes 1+; Target Cells 1+
[2021-12-06] MEDS ORDERED: HYDROMORPHONE HCL 1 MG/ML INJ ONE ×2 (13:29→17:08)
[2021-12-06] MEDS ORDERED: NA CHLORIDE 0.9% 1,000 ML ONE ×2 (13:29→17:31)
[2021-12-06 13:38] LABS: Urine Blood 1+ (Negative); Urine Glucose Negative (Negative); Urine Protein 2+ (Negative); Urine Specific Gravity 1.025 (1.005-1.030)
--- NOTE | 2021-12-06 14:21 | RAD REPORT ---
EXAM DESCRIPTION: CT - Chest For Pe Angio - 12/06/2021 2:02 pm CLINICAL HISTORY: chest pain COMPARISON: Chest For Pe Angio dated 03/21/2018; Abdomen Pelvis W Contrast dated 12/06/2021 TECHNIQUE: Dynamically enhanced axial 3 mm thick images of the chest were obtained during administra tion of <100> mL Isovue 370 IV contrast. Coronal and oblique reconstruction images were generated and reviewed. Exam utilizes a protocol for optimal evaluation of pulmonary arterial tree. Maximum intensity projections 3D imaging was utilized All CT scans are performed using dose optimization technique as appropriate and may include automated exposure control or mA/KV adjustment according to patient size. FINDINGS: Chest Wall: No suspicious thyroid nodules or pathologic lymphadenopathy. Lungs: No acute abnormality. Pleura: No significant effusions or pneumothorax. Mediastinum/keron: No pathologic lymphadenopathy. Pulmonary arteries/Aorta: Limited by suboptimal contrast opacification of the pulmonary arteries. No central pulmonary embolus. The segmental and subsegmental pulmonary arteries, particulary in the lowe r lobes cannot be evaluated. Enlarged main pulmonary artery suggesting pulmonary artery hypertension. Filling defects are present within the lower lobe segmental pulmonary arteries but there is signific ant motion artifact and this is not as well appreciated on the more delayed phases obtained during th e CT abdomen/pelvis. No aortic aneurysm. Heart: No significant pericardial effusion. Cardiomegaly. Upper abdomen: See dedicated CT of the abdomen and pelvis. Bones: No acute abnormality. 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 IMPRESSION: Suboptimal opacification of the pulmonary arteries limits evaluation for pulmonary embol ism. No central pulmonary embolus is identified. A clinically significant segment or subsegmental pul monary embolus cannot be entirely excluded, however. The patient has a known deep venous thrombosis.
--- NOTE | 2021-12-06 14:24 | RAD REPORT ---
EXAM DESCRIPTION: CTAbdomen Pelvis W Contrast - 12/06/2021 2:02 pm CLINICAL HISTORY: abdomen pain COMPARISON: No comparisons TECHNIQUE: CT of the abdomen and pelvis was performed. All CT scans are performed using dose optimization technique as appropriate and may include automated exposure control or mA/KV adjustment according to patient size. FINDINGS: Lower chest: Reference same-day chest CT. Liver: Hepatic steatosis. Biliary: Cholelithiasis. Stomach: No significant focal abnormality. Duodenum: No significant focal abnormality. Pancreas: No significant abnormality. 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 Kidney/ureter: No hydronephrosis. No renal calculi. Too small to characterize and/or benign appearing renal lesions are noted. Retroperitoneum: No retroperitoneal adenopathy. Vascular: No aneurysm. Bowel: No significant focal abnormality. Normal appendix. Peritoneum: No ascites or free air. Small fat containing umbilical hernia. Bladder: Grossly unremarkable. Reproductive: Large right hydrocele. This is partially imaged. 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 Other: n/a IMPRESSION: No acute intra-abdominal or pelvic finding. Ancillary findings as noted above.
[2021-12-06] MEDS ORDERED: AZITHROMYCIN 500 MG INJ IVPB ONE (15:22)
[2021-12-06] MEDS ORDERED: CEFTRIAXONE 1000 MG/VIAL ONE (15:22)
[2021-12-06] MEDS ORDERED: NA CHLORIDE 0.9% 50 ML IV ONE (15:23)
[2021-12-06] MEDS ORDERED: NA CHLORIDE 0.9% 250 ML ONE (15:23)
--- NOTE | 2021-12-06 17:03 | ER ---
Nurse's Notes [facility] Name: Tevin Chacon III Age: 51 yrs Sex: Male : 1970 Arrival Date: 12/06/2021 Time: 11:13 Bed 2 Private MD: Jacques Valladares Diagnosis: Acute embolism and thrombosis of unspecified deep veins of right lower extremity;Other sickle-cell disorders with crisis;Chest pain, unspecified Presentation: 12/06 11:27 Chief complaint: Patient states: Chest pain began today around 0300, denies SOB or N/V. vg1 Coronavirus screen: Vaccine status: Patient reports being unvaccinated. Ebola Screen: Patient negative for fever greater than or equal to 101.5 degrees Fahrenheit, and additional compatible Ebola Virus Disease symptoms Patient denies exposure to infectious person. Initial Sepsis Screen: Does the patient meet any 2 criteria? No. Patient's initial sepsis screen is negative. Does the patient have a suspected source of infection? No. Patient's initial sepsis screen is negative. Risk Assessment: Do you want to hurt yourself or someone else? Patient reports no desire to harm self or others. Onset of symptoms was December 06, 2021 at 03:00. 11:27 Method Of Arrival: Wheelchair vg1 11:27 Acuity: SALMA 2 vg1 Triage Assessment: 11:20 General: Appears in no apparent distress. uncomfortable, Behavior is calm, cooperative. vg1 Pain: Complains of pain in back and chest Pain radiates to back Pain currently is 4 out of 10 on a pain scale. Pain began today [id number] Noted to be guarding. EENT: No signs and/or symptoms were reported regarding the EENT system. Neuro: Level of Consciousness is awake, alert, obeys commands, Oriented to person, place, time, situation. Cardiovascular: Patient's skin is warm and dry. Rhythm is sinus rhythm with unifocal PVCs Chest pain is described as Pain is 4 out of 10 on a pain scale. radiates back. Respiratory: Airway is patent Respiratory effort is even, unlabored. GI: Abdomen is round non-distended, Patient currently denies nausea, vomiting. : No signs and/or symptoms were reported regarding the genitourinary system. Derm: Skin is pink, warm \\T\\ dry. Musculoskeletal: Circulation, motion, and sensation intact. Historical: - Allergies: 11:28 No Known Allergies; vg1 - PMHx: 11:28 Sickle Cell; vg1 - Immunization history:: Client reports having NOT received the Covid vaccine. - Social history:: Smoking status: Patient denies any tobacco usage or history of. Screenin:31 Abuse screen: Denies threats or abuse. Nutritional screening: No deficits noted. vg1 Tuberculosis screening: No symptoms or risk factors identified. Fall Risk No fall in past 12 months (0 pts). No secondary diagnosis (0 pts). IV access (20 points). Ambulatory Aid- None/Bed Rest/Nurse Assist (0 pts). Gait- Normal/Bed Rest/Wheelchair (0 pts) Mental Status- Oriented to own ability (0 pts). Total Scanlon Fall Scale indicates No Risk (0-24 pts). Assessment: 11:31 Reassessment: SEE TRIAGE. vg1 12:53 Reassessment: Patient appears in no apparent distress at this time. No changes from 1 previously documented assessment. Patient and/or family updated on plan of care and expected duration. Pain level reassessed. Patient is alert, oriented x 3, equal unlabored respirations, skin warm/dry/pink. stated "chest pain feels like a throbbing sensation". 13:58 Reassessment: Patient appears in no apparent distress at this time. Patient and/or vg1 family updated on plan of care and expected duration. Pain level reassessed. Patient is alert, oriented x 3, equal unlabored respirations, skin warm/dry/pink. pt transported by from [place]; Pt stated "Im feeling more relaxed" rated CP 2/10. 15:00 Reassessment: Patient appears in no apparent distress at this time. Patient and/or vg1 family updated on plan of care and expected duration. Pain level reassessed. Patient is alert, oriented x 3, equal unlabored respirations, skin warm/dry/pink. rated pain level 4/10. Family at bedside. 15:30 Reassessment: two attempts for blood cultures, contacted lab for assistance. vg1 16:00 Reassessment: Patient appears in no apparent distress at this time. Patient and/or vg1 family updated on plan of care and expected duration. Pain level reassessed. Patient is alert, oriented x 3, equal unlabored respirations, skin warm/dry/pink. Pt reports of increased pain; provider notified. 17:00 Reassessment: Patient appears in no apparent distress at this time. No changes from vg1 previously documented assessment. Patient and/or family updated on plan of care and expected duration. Pain level reassessed. Patient is alert, oriented x 3, equal unlabored respirations, skin warm/dry/pink. 17:47 Reassessment: Attempted to call report. vg1 18:07 Reassessment: Attempted to call report. vg1 18:42 Reassessment: Patient appears in no apparent distress at this time. Patient and/or vg1 family updated on plan of care and expected duration. Pain level reassessed. Patient is alert, oriented x 3, equal unlabored respirations, skin warm/dry/pink. Rated pain in Right knee 2/10, tolerable. Vital Signs: 11:27 BP 179 / 95; Pulse 89; Resp 19; Temp 98.8; Pulse Ox 97% on R/A; Weight 122.47 kg; vg1 Height 6 ft. 4 in. (193.04 cm); Pain 4/10; 12:00 BP 136 / 85; Pulse 81; Resp 13; Pulse Ox 95% on R/A; vg1 12:45 BP 154 / 96; Pulse 77; Resp 20; Pulse Ox 97% on R/A; vg1 13:55 BP 155 / 81; Pulse 80; Resp 12; Pulse Ox 95% on R/A; vg1 14:30 BP 158 / 79; Pulse 83; Resp 15; Pulse Ox 95% on R/A; vg1 15:00 BP 174 / 99; Pulse 84; Resp 16; Pulse Ox 95% on R/A; vg1 16:00 BP 174 / 93; Pulse 97; Resp 23; Pulse Ox 97% on R/A; vg1 16:30 BP 147 / 79; Pulse 86; Resp 19; Pulse Ox 94% on R/A; vg1 17:00 BP 145 / 87; Pulse 101; Resp 25; Pulse Ox 98% on R/A; vg1 17:30 BP 145 / 79; Pulse 86; Resp 15; Pulse Ox 96% ; vg1 18:30 BP 141 / 85; Pulse 86; Resp 20; Pulse Ox 95% on R/A; vg1 11:27 Body Mass Index 32.87 (122.47 kg, 193.04 cm) vg1 ED Course: 11:13 Patient arrived in ED. am2 11:14 Jacques Valladares MD is Private Physician. am2 11:17 Chantal Pérez, LYNSEY is Primary Nurse. vg1 11:18 Adam Whaley PA is PHCP. cp 11:18 Dorian Talley DO is Attending Physician. cp 11:20 Arm band placed on. EKG completed in triage. Results shown to MD. vg1 11:28 Triage completed. vg1 11:31 Patient has correct armband on for positive identification. Placed in gown. Bed in low vg1 position. Call light in reach. Side rails up X 1. Adult w/ patient. Client placed on continuous cardiac and pulse oximetry monitoring. NIBP monitoring applied. 11:31 Inserted saline lock: 20 gauge in right antecubital area, using aseptic technique. vg1 Blood collected. Patient maintains SpO2 saturation greater than 95% on room air. 11:41 Flu Sent. ap3 11:41 SARS-COV-2 RT PCR (Document "Date of Onset" if Symptomatic) Sent. ap3 12:05 XRAY Chest (1 view) In Process Unspecified. EDMS 12:05 XRAY Knee RIGHT 3 view In Process Unspecified. EDMS 12:43 US Extremity Venous Unilateral Ltd In Process Unspecified. EDMS 14:04 CT Chest For PE Angio In Process Unspecified. EDMS 14:04 CT Abd/Pelvis - IV Contrast Only In Process Unspecified. EDMS 15:07 intiated a transfer with Gordy Collier Rn from the [facility]. eb 16:[address] Bates the hospitalist camera control operator for [facility] for patient transfer eb consultation. 17:09 administrative approval given by Gordy Collier Rn/ patient has been accepted to [facility] eb 21 tower 2135/ Dr. Bates has accepted the patient in transfer/ report to be called to [phone]. 18:21 No provider procedures requiring assistance completed. Patient transferred, IV remains vg1 in place. Administered Medications: 11:40 Drug: Aspirin Chewable Tablet 324 mg Route: PO; ap3 12:42 Follow up: Response: No adverse reaction ap3 11:51 Drug: morphine 4 mg Route: IVP; Infused Over: 4 mins; Site: right antecubital; ap3 12:42 Follow up: Response: No adverse reaction; Pain is decreased ap3 13:34 Drug: Dilaudid (HYDROmorphone) 1 mg Route: IVP; Site: right antecubital; ap3 14:02 Follow up: Response: No adverse reaction; Pain is decreased vg1 13:34 Drug: NS 0.9% 1000 ml Route: IV; Rate: 1000 ml/hr; Site: right antecubital; ap3 14:30 Follow up: IV Status: Completed infusion; IV Intake: 1000ml vg1 14:42 CANCELLED (Physician Discretion): NS 0.9% 1000 ml IV at 1000 ml once cp 17:14 Drug: Dilaudid (HYDROmorphone) 1 mg Route: IVP; Site: right antecubital; vg1 18:42 Follow up: Response: No adverse reaction; Pain is decreased vg1 17:15 Drug: Rocephin - (cefTRIAXone) 2 grams Route: IVPB; Infused Over: 30 mins; Site: left vg1 antecubital; 17:29 Follow up: IV Status: Completed infusion vg1 17:19 Drug: Lovenox (enoxaparin) 1 mg/kg Route: Sub-Q; Site: right upper abdomen; vg1 18:39 Follow up: Response: No adverse reaction vg1 17:36 Drug: NS 0.9% 1000 ml Route: IV; Rate: 100 ml/hr; Site: right antecubital; vg1 17:36 Drug: Zithromax (azithromycin) 500 mg Route: IVPB; Infused Over: 1 hrs; Site: right vg1 antecubital; 18:39 Follow up: IV Status: Completed infusion; IV Intake: 250ml vg1 Medication: 11:32 VIS not applicable for this client. vg1 Intake: 14:30 IV: 1000ml; Total: 1000ml. vg1 18:39 IV: 250ml; Total: 1250ml. vg1 Outcome: 17:02 ER care complete, transfer ordered by . kadeem 18:20 Transferred by ground EMS to [facility]. vg1 18:20 Condition: good 18:20 Instructed on the need for transfer, Report given to Katlin MENON 19:26 Patient left the ED. as6 Signatures: Dispatcher [employer] EDMS Page, Adam, Izabela Hicks cp, Amanda, RN RN ap3 Tania Hoyos Victoria RN RN vg1 Asael Brown, RN RN as6
--- NOTE | 2021-12-06 17:03 | EDPHYS ---
Physician Documentation [facility] Name: Tevin Chacon III Age: 51 yrs Sex: Male : 1970 Arrival Date: 12/06/2021 Time: 11:13 Bed 2 Private MD: Jacques Valladares ED Physician Dorian Talley HPI: 12/06 11:33 This 51 yrs old Black Male presents to ER via Wheelchair with complaints of Chest Pain, cp Back Pain, bodyaches. 11:33 The patient or guardian reports chest pain that is located primarily in the anterior cp chest wall, bilaterally. 11:33 Onset: this morning, at 03:00. The pain radiates to Associated signs and symptoms: cp Pertinent positives: body aches, right knee pain and swelling, Pertinent negatives: abdominal pain, cough, diaphoresis, shortness of breath, syncope. The chest pain is described as a pressure. Duration: The patient or guardian reports a single episode, that is still ongoing, and worsening. Severity of pain: in the emergency department the pain is unchanged despite home interventions. Historical: - Allergies: 11:28 No Known Allergies; vg1 - PMHx: 11:28 Sickle Cell; vg1 - Immunization history:: Client reports having NOT received the Covid vaccine. - Social history:: Smoking status: Patient denies any tobacco usage or history of. ROS: 11:35 Constitutional: Positive for body aches, Negative for fever, poor PO intake. cp 11:35 Eyes: Negative for injury, pain, redness, and discharge. cp 11:35 ENT: Negative for drainage from ear(s), ear pain, sore throat, difficulty swallowing, difficulty handling secretions. 11:35 Cardiovascular: Positive for chest pain. 11:35 Respiratory: Negative for cough, shortness of breath, wheezing. 11:35 Abdomen/GI: Negative for vomiting, diarrhea, constipation. 11:35 Back: Positive for radiated pain. 11:35 : Negative for urinary symptoms. 11:35 Neuro: Negative for altered mental status, dizziness, headache, syncope, weakness. 11:35 All other systems are negative. Exam: 11:40 Constitutional: The patient appears in no acute distress, alert, awake, cp non-diaphoretic, non-toxic, well developed, well nourished, uncomfortable. 11:40 Head/Face: Normocephalic, atraumatic. cp 11:40 Eyes: Periorbital structures: appear normal, Pupils: equal, round, and reactive to light and accomodation, Extraocular movements: intact throughout, Conjunctiva: normal, no exudate, no injection, Sclera: no appreciated abnormality, Lids and lashes: appear normal, bilaterally. 11:40 ENT: External ear(s): are unremarkable, Nose: is normal, Mouth: Lips: moist, Oral mucosa: pink and intact, moist, Posterior pharynx: Airway: no evidence of obstruction, patent, Tonsils: are normal in appearance, erythema, is not appreciated, exudate, is not appreciated. 11:40 Neck: ROM/movement: is normal, is supple, without pain, no range of motions limitations, no meningismus. 11:40 Chest/axilla: Inspection: normal. 11:40 Cardiovascular: Rate: normal, Rhythm: regular, Edema: is not appreciated, JVD: is not appreciated. 11:40 Respiratory: the patient does not display signs of respiratory distress, Respirations: normal, no use of accessory muscles, no retractions, labored breathing, is not present, Breath sounds: bronchial sounds, that are mild, are heard diffusely, decreased breath sounds, are not appreciated, stridor, is not appreciated, wheezing: is not appreciated. 11:40 Abdomen/GI: Inspection: abdomen appears normal, Bowel sounds: active, all quadrants, Palpation: abdomen is soft and non-tender, in all quadrants. 11:40 Back: CVA tenderness, is absent. 11:40 Musculoskeletal/extremity: Extremities: grossly normal except: noted in the right knee: pain, swelling, tenderness, There is no evidence of decreased ROM, ROM: limited passive range of motion due to pain, in the right knee, Pulses: noted to be 2+ in the right radial artery, right dorsalis pedis artery, left radial artery and left dorsalis pedis artery. 11:40 Skin: cellulitis, is not appreciated, no rash present. 11:40 Neuro: Orientation: to person, place \\T\\ time. Mentation: is normal, Motor: moves all fours, strength is normal. Vital Signs: 11:27 BP 179 / 95; Pulse 89; Resp 19; Temp 98.8; Pulse Ox 97% on R/A; Weight 122.47 kg; vg1 Height 6 ft. 4 in. (193.04 cm); Pain 4/10; 12:00 BP 136 / 85; Pulse 81; Resp 13; Pulse Ox 95% on R/A; vg1 12:45 BP 154 / 96; Pulse 77; Resp 20; Pulse Ox 97% on R/A; vg1 13:55 BP 155 / 81; Pulse 80; Resp 12; Pulse Ox 95% on R/A; vg1 14:30 BP 158 / 79; Pulse 83; Resp 15; Pulse Ox 95% on R/A; vg1 15:00 BP 174 / 99; Pulse 84; Resp 16; Pulse Ox 95% on R/A; vg1 16:00 BP 174 / 93; Pulse 97; Resp 23; Pulse Ox 97% on R/A; vg1 16:30 BP 147 / 79; Pulse 86; Resp 19; Pulse Ox 94% on R/A; vg1 17:00 BP 145 / 87; Pulse 101; Resp 25; Pulse Ox 98% on R/A; vg1 17:30 BP 145 / 79; Pulse 86; Resp 15; Pulse Ox 96% ; vg1 18:30 BP 141 / 85; Pulse 86; Resp 20; Pulse Ox 95% on R/A; vg1 11:27 Body Mass Index 32.87 (122.47 kg, 193.04 cm) vg1 MDM: 11:26 Patient medically screened. cp 12:00 Differential diagnosis: abnormal EKG, acute myocardial infarction, acute pericarditis, cp pericarditis, pneumonia, pneumothorax, pulmonary embolus, stable angina, unstable angina, acute chest syndrome. 15:00 Data reviewed: vital signs, nurses notes, lab test result(s), EKG, radiologic studies, cp CT scan, plain films, ultrasound. 15:00 The patient was given aspirin in the Emergency Department. Test interpretation: by ED cp physician or midlevel provider: ECG, plain radiologic studies. ED course: consult with hospitalist, DR Angel, recommends transfer due to inability to perform plasmapheresis . 12/06 11:31 Order name: SARS-COV-2 RT PCR (Document "Date of Onset" if Symptomatic); Complete Time: eb 12:51 12/06 11:31 Order name: Flu; Complete Time: 12:51 eb 12/06 11:31 Order name: Basic Metabolic Panel; Complete Time: 12:51 cp 12/06 13:08 Interpretation: Normal except: CL 108. cp 12/06 11:31 Order name: CBC with Diff; Complete Time: 13:27 cp 12/06 13:09 Interpretation: Normal except: WBC 21.20; RBC 3.63; HGB 10.5; HCT 31.6; RDW 19.7; NEUT cp A 14.4; LYMA 5.2; MNA 1.5. 12/06 11:31 Order name: LFT's; Complete Time: 12:51 cp 12/06 14:38 Interpretation: Normal except: AST 41; ALK 127; BILIT 2.7; BILID 0.6; TP 8.4; GLOB 4.5; cp A/G 0.9. 12/06 11:31 Order name: Magnesium; Complete Time: 12:51 cp 12/06 11:31 Order name: NT PRO-BNP; Complete Time: 12:51 cp 12/06 11:31 Order name: PT-INR; Complete Time: 12:51 cp 12/06 11:31 Order name: Troponin HS; Complete Time: 12:51 cp 12/06 16:13 Interpretation: Reviewed. cp 12/06 11:33 Order name: Retic Count; Complete Time: 12:51 cp 12/06 11:33 Order name: D-Dimer; Complete Time: 12:51 cp 12/06 11:33 Order name: Urine Microscopic Only; Complete Time: 14:03 cp 12/06 12:28 Order name: Manual Differential; Complete Time: 13:27 EDMS 12/06 13:39 Order name: Urine Dipstick-Ancillary; Complete Time: 14:03 EDMS 12/06 11:31 Order name: XRAY Chest (1 view); Complete Time: 12:51 cp 12/06 11:33 Order name: US Extremity Venous Unilateral Ltd; Complete Time: 13:08 cp 12/06 11:34 Order name: XRAY Knee RIGHT 3 view; Complete Time: 12:51 cp 12/06 13:11 Order name: CT Chest For PE Angio; Complete Time: 14:36 cp 12/06 13:11 Order name: CT Abd/Pelvis - IV Contrast Only; Complete Time: 14:36 cp 12/06 14:38 Order name: Lactate cp 12/06 14:38 Order name: Procalcitonin cp 12/06 14:38 Order name: Blood Culture Adult (2) cp 12/06 11:31 Order name: EKG; Complete Time: 11:32 cp 12/06 11:31 Order name: Cardiac monitoring; Complete Time: 11:32 cp 12/06 11:31 Order name: EKG - Nurse/Tech; Complete Time: 11:33 cp 12/06 11:31 Order name: IV Saline Lock; Complete Time: 11:33 cp 12/06 11:31 Order name: Labs collected and sent; Complete Time: 11:33 cp 12/06 11:31 Order name: O2 Per Protocol; Complete Time: 11:33 cp 12/06 11:31 Order name: O2 Sat Monitoring; Complete Time: 11:33 cp 12/06 11:33 Order name: Urine Dipstick-Ancillary (obtain specimen); Complete Time: 13:39 cp Administered Medications: 11:40 Drug: Aspirin Chewable Tablet 324 mg Route: PO; ap3 12:42 Follow up: Response: No adverse reaction ap3 11:51 Drug: morphine 4 mg Route: IVP; Infused Over: 4 mins; Site: right antecubital; ap3 12:42 Follow up: Response: No adverse reaction; Pain is decreased ap3 13:34 Drug: Dilaudid (HYDROmorphone) 1 mg Route: IVP; Site: right antecubital; ap3 14:02 Follow up: Response: No adverse reaction; Pain is decreased vg1 13:34 Drug: NS 0.9% 1000 ml Route: IV; Rate: 1000 ml/hr; Site: right antecubital; ap3 14:30 Follow up: IV Status: Completed infusion; IV Intake: 1000ml vg1 14:42 CANCELLED (Physician Discretion): NS 0.9% 1000 ml IV at 1000 ml once cp 17:14 Drug: Dilaudid (HYDROmorphone) 1 mg Route: IVP; Site: right antecubital; vg1 18:42 Follow up: Response: No adverse reaction; Pain is decreased vg1 17:15 Drug: Rocephin - (cefTRIAXone) 2 grams Route: IVPB; Infused Over: 30 mins; Site: left vg1 antecubital; 17:29 Follow up: IV Status: Completed infusion vg1 17:19 Drug: Lovenox (enoxaparin) 1 mg/kg Route: Sub-Q; Site: right upper abdomen; vg1 18:39 Follow up: Response: No adverse reaction vg1 17:36 Drug: NS 0.9% 1000 ml Route: IV; Rate: 100 ml/hr; Site: right antecubital; vg1 17:36 Drug: Zithromax (azithromycin) 500 mg Route: IVPB; Infused Over: 1 hrs; Site: right vg1 antecubital; 18:39 Follow up: IV Status: Completed infusion; IV Intake: 250ml vg1 Disposition: 11:45 Co-signature as Attending Physician, Dorian Talley DO I was immediately available on-site ms3 in the Emergency Department for consultation in the care of the patient. Disposition Summary: 12/06/21 17:02 Transfer Ordered Transfer Location: [facility] cp Reason: Higher level of care cp Condition: Stable cp Problem: new cp Symptoms: have improved cp Accepting Physician: DR Guillen(12/06/21 19:26) as6 Diagnosis - Acute embolism and thrombosis of unspecified deep veins of right lower extremity cp - Other sickle-cell disorders with crisis cp - Chest pain, unspecified cp Forms: - Medication Reconciliation Form cp - SBAR form cp Signatures: Dispatcher [employer] EDMS Adam Whaley PA PA cp Izabela Phan RN RN ap3 Chantal Pérez RN LYNSEY vg1 Dorian Talley DO DO ms3 Asael Brown RN RN as6 Corrections: (The following items were deleted from the chart) 14:42 14:39 NS 0.9% 1000 ml IV at 1000 ml once ordered. cp cp 19:26 17:02 DR Guillen cp as6
[2021-12-06] MEDS ORDERED: ENOXAPARIN 100 MG/ML SYR SQ ONE (17:08)
[2021-12-06 19:33] VITALS: TEMP 98.8
[2021-12-06 19:48] VITALS: BP 141/85; O2SAT 95
--- NOTE | 2021-12-09 16:08 | EKG ---
Test Date: 2021-12-06 Test Time: 11:23:06 [employer] Supervisor: ALP MEASUREMENT RESULTS: Intervals: Rate: 80 LA: 168 QRSD: 94 QT: 392 QTc: 452 [place]: P: 64 LA: 168 QRS: 12 T: 52 INTERPRETIVE STATEMENTS: Sinus rhythm with frequent premature ventricular complexes Possible Left atrial enlargement Borderline ECG Compared to ECG 03/21/2018 02:51:16 Ventricular premature complex(es) now present Electronically Signed On 12-09-21 16:01:07 CDT by Magen Slater
== END 2021-12-06 19:26 | disposition short-term general hospital (02) ==
LOC: ER 11:13
DX: I82.401 Acute embolism and thrombosis of unspecified deep veins of right lower extremity (principal); D57.819 Other sickle-cell disorders with crisis, unspecified; R07.89 Other chest pain; Z20.822 Contact with and (suspected) exposure to COVID-19
CPT/HCPCS: 93005; 87040 ×2; 85025; 80048; 36415; 83735; 85610; 85044; 85379; 80076; 83605; 84484; 84145; 83880; 87804 ×2; 71275; 74177; 71045; 73562; 93971; 96372; 99285; U0003; Q9967; J0456; J1650; J1170 ×2; J7050; J7030 ×2; 81003; 81015

== ENCOUNTER 2024-01-30 05:36 | Emergency (ER) | payer OTHER, SELFPAY ==
[2024-01-30] MEDS ORDERED: ONDANSETRON 4 MG/2 ML VIAL ONE (06:07)
[2024-01-30] MEDS ORDERED: KETOROLAC 30 MG/ML INJ ONE (06:07)
[2024-01-30] MEDS ORDERED: FENTANYL CITR 100 MCG/2 ML ONE ×2 (06:07→06:44)
[2024-01-30] MEDS ORDERED: NA CHLORIDE 0.9% 1,000 ML ONE ×2 (06:08→06:35)
[2024-01-30 07:12] LABS: PT Prothrombin Time 12.9 SECONDS (9.4-12.5); Protime INR 1.16
[2024-01-30 07:22] LABS: Absolute Basophils 0.2 K/uL (0-0.5); Absolute Eosinophils 0.1 K/uL (0-0.5); Absolute Lymphocytes (CBC) 2.2 K/uL (0.7-4.9); Absolute Monocytes 3.7 K/uL (0.1-1.3); Absolute Neutrophil 18.8 K/uL (1.8-8.0); Basophils % 0.9 % (0-1.3); Eosinophils % 0.2 % (0-4.4); Hematocrit 21.9 % (39.6-49.0); Hemoglobin 7.7 g/dL (13.6-17.9); Lymphocytes % 8.7 % (15.3-44.8); MCH 28.1 pg (27.0-35.0); MCHC 35.4 g/dL (32.0-36.0); MCV 79.5 fL (80-100); MPV 8.7 fL (7.6-11.3); Monocytes % 14.9 % (3.3-12.3); Neutrophils % 75.3 % (41.7-73.7); Percent Reticulocyte Count 9.74 % (0.4-2.05); Platelets 108 thou/uL (152-406); RBC Red Blood Cell Count 2.75 M/uL (4.33-5.43); Red Cell Distribution Width 26.9 % (12.1-15.2)
[2024-01-30 07:57] LABS: Albumin 3.6 g/dL (3.4-5.0); Albumin/Globulin Ratio 0.9 (1.1-1.8); Anion Gap 12.1 mEq/L (5.0-15.0); Bilirubin Direct 0.8 mg/dL (0-0.2); Bilirubin Indirect, Calculated 2.1 mg/dL (0.2-0.8); Bilirubin Total 2.9 mg/dL (0.2-1.0); Globulin 3.8 g/dL (2.3-3.5); Magnesium 1.8 mg/dL (1.6-2.4); Potassium 4.1 mEq/L (3.5-5.1); Protein, Total 7.4 g/dL (6.4-8.2)
[2024-01-30] MEDS ORDERED: FAMOTIDINE 20 MG/2 ML VIAL IV ONE (08:10)
[2024-01-30] MEDS ORDERED: FOLIC ACID 5 MG/ML VIAL ONE (08:16)
[2024-01-30] MEDS ORDERED: HYDROMORPHONE HCL 1 MG/ML INJ ONE (08:16)
--- NOTE | 2024-01-30 08:16 | ER ---
Nurse's Notes [facility] Name: Tevin Chacon III Age: 53 yrs Sex: Male : 1970 Arrival Date: 01/30/2024 Time: 05:36 Bed 14 Private MD: Jacques Valladares Diagnosis: Low back pain;Other sickle-cell disorders with crisis;Anemia, unspecified;Acute kidney failure, unspecified Presentation: 01/29 05:50 Chief complaint: Patient states: patient c/o lower back pain since 1800 last night, al5 states that the pain is similar to his sickle cell attacks. last sickle cells crisis was about 2-3 years ago. Coronavirus screen: At this time, the client does not indicate any symptoms associated with coronavirus-19. Ebola Screen: No symptoms or risks identified at this time. Initial Sepsis Screen: Does the patient meet any 2 criteria? No. Patient's initial sepsis screen is negative. Does the patient have a suspected source of infection? No. Patient's initial sepsis screen is negative. Risk Assessment: Do you want to hurt yourself or someone else? Patient reports no desire to harm self or others. Onset of symptoms was January 29, 2024 at 18:00. 05:50 Method Of Arrival: Wheelchair al5 05:50 Acuity: SALMA 3 al5 Triage Assessment: 05:52 General: Appears in no apparent distress. uncomfortable, Behavior is calm, cooperative. al5 Pain: Complains of pain in right low back Pain currently is 8 out of 10 on a pain scale. EENT: No signs and/or symptoms were reported regarding the EENT system. Neuro: Level of Consciousness is awake, alert, obeys commands, Oriented to person, place, time, situation. Cardiovascular: Capillary refill < 3 seconds Patient's skin is warm and dry. Respiratory: Airway is patent Respiratory effort is even, unlabored, Respiratory pattern is regular, symmetrical. GI: No signs and/or symptoms were reported involving the gastrointestinal system. : Reports lower back pain. Derm: Skin is intact, is healthy with good turgor, Skin is normal, pale. Musculoskeletal: Reports pain in right low back. Historical: - Allergies: 05:52 No Known Allergies; al5 - PMHx: 05:52 Sickle Cell; al5 - PSHx: 05:52 hydrocele surgery; al5 - Immunization history:: Adult Immunizations up to date. - Infectious Disease History:: Denies. - Social history:: Smoking status: Patient denies any tobacco usage or history of. - Family history:: not pertinent. Screenin:[address] [facility] ED Fall Risk Assessment (Adult) History of falling in the last 3 months, al5 including since admission No falls in past 3 months (0 pts) Confusion or Disorientation No (0 pts) Intoxicated or Sedated No (0 pts) Impaired Gait No (0 pts) Mobility Assist Device Used No (0 pt) Altered Elimination No (0 pt) Score/Fall Risk Level 0 - 2 = Low Risk Oriented to surroundings, Maintained a safe environment, Hourly rounding (assess needs \T\ fall precautionary measures) done. Abuse screen: Denies threats or abuse. Denies injuries from another. Nutritional screening: No deficits noted. Tuberculosis screening: No symptoms or risk factors identified. 07:02 Exposure risk/Travel Screening: None identified. mt4 Assessment: 05:54 Reassessment: see triage assessment. al5 06:57 Reassessment: Patient and/or family updated on plan of care and expected duration. Pain mt4 level reassessed. Patient is alert, oriented x 3, equal unlabored respirations, skin warm/dry/pink. Patient states symptoms have improved. General: Appears in no apparent distress. comfortable, obese. Pain: Complains of pain in back Pain currently is 8 out of 10 on a pain scale. Quality of pain is described as aching, sharp. 07:02 Neuro: Level of Consciousness is awake, alert, obeys commands, Oriented to person, mt4 place, time, situation, Manager Sterile are equal bilaterally Moves all extremities. Full function Speech is normal, Facial symmetry appears normal. Cardiovascular: Capillary refill < 3 seconds. Respiratory: Airway is patent Respiratory effort is even, unlabored, Respiratory pattern is regular, symmetrical. GI: Abdomen is round non-distended, obese. : Denies burning with urination. Musculoskeletal: Reports pain in back. 07:51 Reassessment: Patient and/or family updated on plan of care and expected duration. Pain rs5 level reassessed. Patient is alert, oriented x 3, equal unlabored respirations, skin warm/dry/pink. 09:15 Reassessment: Patient and/or family updated on plan of care and expected duration. Pain rs5 level reassessed. Patient is alert, oriented x 3, equal unlabored respirations, skin warm/dry/pink. successful attempt to call report to [facility]. 09:45 Reassessment: report given to EMS at bedside for transport. rs5 Vital Signs: 05:50 BP 166 / 102; Pulse 82; Resp 18; Temp 97.6; Pulse Ox 94% on R/A; Weight 127.91 kg; al5 Height 6 ft. 4 in. ; Pain 8/10; 06:17 Pulse Ox 87% on R/A; mt4 06:17 BP 119 / 78; Pulse 82; Resp 20; Pulse Ox 96% on 3 lpm NC; mt4 07:01 BP 124 / 74; Pulse 81; Resp 17; Pulse Ox 97% on R/A; rs5 09:40 BP 115 / 70; Pulse 84; Resp 17; Pulse Ox 96% on 3 lpm NC; rs5 05:50 Body Mass Index 34.33 (127.91 kg, 193.04 cm) al5 05:50 Pain Scale: Adult al5 [place] Coma Score: 06:09 Eye Response: spontaneous(4). Motor Response: obeys commands(6). Verbal Response: sp4 oriented(5). Total: 15. 07:02 Eye Response: spontaneous(4). Motor Response: obeys commands(6). Verbal Response: mt4 oriented(5). Total: 15. ED Course: 05:40 Patient arrived in ED. gm2 05:40 Jacques Valladares MD is Private Physician. gm2 05:49 Izabela Aguilar, LYNSEY is Primary Nurse. al5 05:50 Diego Lomeli MD is Attending Physician. al5 05:52 Belkis Rodas, LYNSEY is Primary Nurse. mt4 05:52 Triage completed. al5 05:54 Arm band placed on right wrist. Patient placed in the treatment room, on a stretcher, al5 on pulse oximetry. 05:54 Patient has correct armband on for positive identification. Bed in low position. Call al5 light in reach. Side rails up X2. Provided Education on: plan of care. 05:54 No provider procedures requiring assistance completed. al5 06:26 XRAY Chest (1 view) In Process Unspecified. EDMS 07:02 No apparent distress. Resting quietly. Awaiting lab results. mt4 07:02 Patient has correct armband on for positive identification. Bed in low position. Call mt4 light in reach. Side rails up X 1. Client placed on continuous cardiac and pulse oximetry monitoring. NIBP monitoring applied. Door closed. Lights dimmed. Warm blanket given. Pillow given. Verbal reassurance given. 07:02 Inserted saline lock: 20 gauge antecubital area, using aseptic technique. Blood mt4 collected. Flushed with 10 mL NS. Patient maintains SpO2 saturation greater than 95% on room air. 07:12 Attending Physician role handed off by Diego Lomeli MD [facility] 07:12 Adam Beard MD is Attending Physician. [facility] 08:[address] Beard with Fatuma from the [facility] Center. eb 08:22 Chest Abd Pelvis Wo Con In Process Unspecified. EDMS 08:39 connected the hospitalist head of store operations for [facility] with Dr. Beard for patient eb transfer consultation. 08:43 administrative approval given by Fatuma Godinez Rn/ patient has been accepted to [facility] room 2139/ Dr. Raad Dunaway has accepted the patient in transfer/ Report to be called to [phone]. 08:51 US Abdomen Limited In Process Unspecified. EDMS 09:48 Patient transferred, IV remains in place. rs5 Administered Medications: 06:19 Drug: Ondansetron IVP 4 mg IVP once; over 2 minutes Route: IVP; Site: right antecubital;mt4 07:06 Follow up: Response: No adverse reaction mt4 06:19 Drug: NS 0.9% IV 1000 ml IV at 1000 ml once; to be given as a bolus over 60 minutes mt4 Route: IV; Rate: 1000 ml; Site: right antecubital; 07:06 Follow up: Response: No adverse reaction; IV Status: Completed infusion; IV Intake: mt4 1000ml 06:20 Drug: fentaNYL (PF) IVP 100 mcg IVP once Route: IVP; Site: right antecubital; mt4 07:06 Follow up: Response: No adverse reaction mt4 06:20 Drug: Ketorolac IVP 30 mg IVP once Route: IVP; Site: right antecubital; mt4 07:06 Follow up: Response: No adverse reaction mt4 06:40 Drug: NS 0.9% IV 1000 ml IV at 125 ml/hr Per protocol; to be given as a bolus over 60 mt4 minutes Route: IV; Rate: 125 ml/hr; Site: right antecubital; 07:06 Follow up: Response: No adverse reaction; IV Status: Infusion continued mt4 11:25 Follow up: orders to continue infusion upon tranfer rs5 06:56 Drug: fentaNYL (PF) IVP 50 mcg IVP once Route: IVP; Site: right antecubital; mt4 07:20 Follow up: Response: No adverse reaction; Pain is decreased rs5 08:15 Drug: Famotidine IVP 20 mg IVP once; dilute with 10 mL 0.9% NaCl; give over 2 minutes rs5 Route: IVP; Site: right antecubital; 08:34 Follow up: Response: No adverse reaction rs5 08:15 Drug: foLIC Acid IVPB 1 mg IVPB once Route: IVPB; Site: right antecubital; rs5 08:30 Follow up: Response: No adverse reaction rs5 08:52 Drug: HYDROmorphone IVP 1 mg IVP once Route: IVP; Site: right antecubital; rs5 09:20 Follow up: Response: No adverse reaction; Pain is decreased rs5 Medication: 05:54 VIS not applicable for this client. al5 Intake: 07:06 IV: 1000ml; Total: 1000ml. mt4 Outcome: 08:16 ER care complete, transfer ordered by MD. dillon 09:48 Transferred by ground EMS to [facility], Transfer form completed. rs5 09:48 Condition: stable 09:48 Instructed on the need for admit, Demonstrated understanding of instructions, 09:50 Patient left the ED. rs5 Signatures: Dispatcher [employer] EDMS Adam Beard MD MD cha Botello, Elizabeth eb Sotelo, Ricky RN RN rs5 Diego Lomeli MD MD spKendal Abreu 2 Belkis Rodas RN RN mt4 Izabela Aguilar RN RN al5 Corrections: (The following items were deleted from the chart) 07:04 06:57 Neuro: Manager Sterile are mt4 mt4
--- NOTE | 2024-01-30 08:16 | EDPHYS ---
Physician Documentation [facility] Name: Tevin Chacon III Age: 53 yrs Sex: Male : 1970 Arrival Date: 01/30/2024 Time: 05:36 Bed 14 Private MD: Jacques Valladares ED Physician Adam Beard HPI: 01/29 05:51 This 53 yrs old Black Male presents to ER via Unassigned with complaints of Low Back sp4 Pain. 06:05 53-year-old male with history of sickle cell trait presents with acute onset of lower sp4 back pain starting at 6 PM. . Patient states pain is typical of his sickle cell trait and he states often times pain manifest just like sickle cell disease. Patient takes folic acid daily. No known drug allergies.. 06:09 Record reveals hemoglobin in the past was as low as 7.6. Patient is unsure of what type sp4 sickle cell disease he has. . Historical: - Allergies: 05:52 No Known Allergies; al5 - PMHx: 05:52 Sickle Cell; al5 - PSHx: 05:52 hydrocele surgery; al5 - Immunization history:: Adult Immunizations up to date. - Infectious Disease History:: Denies. - Social history:: Smoking status: Patient denies any tobacco usage or history of. - Family history:: not pertinent. ROS: 06:09 Constitutional: Negative for fever, chills, and weight loss, positive for lower back sp4 pain 06:09 All other systems are negative, Exam: 06:09 Constitutional: This is a well developed, well nourished patient who is awake, alert, sp4 in some distress secondary to pain. Head/Face: Normocephalic, atraumatic. Eyes: Pupils equal round and reactive to light, extra-ocular motions intact. Lids and lashes normal. Conjunctiva and sclera are not injected. Cornea within normal limits. Periorbital areas with no swelling, redness, or edema. ENT: Nares patent. No nasal discharge, no septal abnormalities noted. Tympanic membranes are normal and external auditory canals are clear. Oropharynx with no redness, swelling, or masses, exudates, or evidence of obstruction, uvula midline. Mucous membranes moist. Neck: Trachea midline, no thyromegaly or masses palpated, and no cervical lymphadenopathy. Supple, full range of motion without nuchal rigidity, or vertebral point tenderness. Chest/axilla: Normal chest wall appearance and motion. Nontender with no deformity. No lesions are appreciated. Cardiovascular: Regular rate and rhythm with a normal S1 and S2. No gallops, murmurs, or rubs. Normal PMI, no JVD. No pulse deficits. Respiratory: Lungs have equal breath sounds bilaterally, clear to auscultation and percussion. No rales, rhonchi or wheezes noted. No increased work of breathing, no retractions or nasal flaring. Abdomen/GI: Soft, with normal bowel sounds. No distension or tympany. No guarding or rebound. No evidence of tenderness throughout. Back: No spinal tenderness. No costovertebral tenderness. Skin: Warm, dry with normal turgor. Normal color with no rashes, no lesions, and no evidence of cellulitis. MS/ Extremity: Pulses equal, no cyanosis. Neurovascular intact. Full, normal range of motion. Neuro: Awake and alert, GCS 15, oriented to person, place, time, and situation. Cranial nerves II-XII grossly intact. Motor strength 5/5 in all extremities. Sensory grossly intact. Psych: Awake, alert, with orientation to person, place and time. Behavior, mood, and affect are within normal limits 07:15 ECG was reviewed by the Attending Physician. EKG at 0 626 sinus rhythm with sp4 occasional PVCs, rate 76. Otherwise unremarkable. 08:11 Abdomen/GI: Rectal exam: is unremarkable, rectal tone normal, hemorrhoid(s), are not wilma appreciated, mass, is not appreciated, swelling, is not appreciated, tenderness, is not appreciated, Liver: no appreciated palpable abnormalities, Hernia: not appreciated, Vital Signs: 05:50 BP 166 / 102; Pulse 82; Resp 18; Temp 97.6; Pulse Ox 94% on R/A; Weight 127.91 kg; al5 Height 6 ft. 4 in. ; Pain 8/10; 06:17 Pulse Ox 87% on R/A; mt4 06:17 BP 119 / 78; Pulse 82; Resp 20; Pulse Ox 96% on 3 lpm NC; mt4 07:01 BP 124 / 74; Pulse 81; Resp 17; Pulse Ox 97% on R/A; rs5 09:40 BP 115 / 70; Pulse 84; Resp 17; Pulse Ox 96% on 3 lpm NC; rs5 05:50 Body Mass Index 34.33 (127.91 kg, 193.04 cm) al5 05:50 Pain Scale: Adult al5 [place] Coma Score: 06:09 Eye Response: spontaneous(4). Motor Response: obeys commands(6). Verbal Response: sp4 oriented(5). Total: 15. 07:02 Eye Response: spontaneous(4). Motor Response: obeys commands(6). Verbal Response: mt4 oriented(5). Total: 15. MDM: 06:09 Differential diagnosis: arthritis, strain, fracture, sciatica, Herniated disc UTI. Data 4 reviewed: vital signs, nurses notes, old medical records, lab test result(s), EKG, radiologic studies, CT scan, plain films. 06:26 Transition of care: After a detail discussion of the patient's case, care is sp4 transferred to Adam Beard MD. 07:15 Medical Screening Exam initiated [facility] 01/29 06:04 Order name: Retic Count [facility] 01/29 06:04 Order name: Basic Metabolic Panel; Complete Time: 08:08 [facility] 01/29 06:04 Order name: CBC with Diff [facility] 01/29 06:04 Order name: LFT's; Complete Time: 08:08 [facility] 01/29 06:04 Order name: Magnesium; Complete Time: 08:08 [facility] 01/29 06:04 Order name: NT PRO-BNP; Complete Time: 08:08 [facility] 01/29 06:04 Order name: PT-INR; Complete Time: 07:13 [facility] 01/29 06:04 Order name: Troponin HS; Complete Time: 08:08 [facility] 01/29 06:04 Order name: LDH; Complete Time: 08:08 [facility] 01/29 08:08 Order name: Lipase; Complete Time: 08:40 [facility] 01/29 08:09 Order name: Urinalysis w/ reflexes [facility] 01/29 08:51 Order name: Manual Differential [facility] 01/29 06:04 Order name: XRAY Chest (1 view) [facility] 01/29 08:10 Order name: US Abdomen Limited [facility] 01/29 08:21 Order name: Chest Abd Pelvis Wo Con; Complete Time: 08:40 [facility] 01/29 06:04 Order name: Cardiac monitoring; Complete Time: 06:33 sp4 01/29 06:04 Order name: EKG - Nurse/Tech; Complete Time: 06:33 sp4 01/29 06:04 Order name: IV Saline Lock; Complete Time: 06:20 sp4 01/29 06:04 Order name: Labs collected and sent; Complete Time: 06:20 sp4 01/29 06:04 Order name: O2 Per Protocol; Complete Time: 06:20 sp4 01/29 06:04 Order name: O2 Sat Monitoring; Complete Time: 06:20 sp4 01/29 06:43 Order name: Labs - recollect needed: recollect all the labs/ hemolyzed per Cintia; eb Complete Time: 07:00 01/29 07:14 Order name: Oxygen: 2 liters; Complete Time: 07:32 wilma EC:26 Rate is 76 beats/min. Rhythm is irregular, Sinus Rhythm with Unifocal PVCs, Occasional sp4 PVCs. QRS [place] is Normal. ID interval is normal. QRS interval is normal. QT interval is normal. No Q waves. T waves are Normal. No ST changes noted. Clinical impression: No evidence of ischemia. Interpreted by me. Reviewed by me. Administered Medications: 06:19 Drug: Ondansetron IVP 4 mg IVP once; over 2 minutes Route: IVP; Site: right antecubital;mt4 07:06 Follow up: Response: No adverse reaction mt4 06:19 Drug: NS 0.9% IV 1000 ml IV at 1000 ml once; to be given as a bolus over 60 minutes mt4 Route: IV; Rate: 1000 ml; Site: right antecubital; 07:06 Follow up: Response: No adverse reaction; IV Status: Completed infusion; IV Intake: mt4 1000ml 06:20 Drug: fentaNYL (PF) IVP 100 mcg IVP once Route: IVP; Site: right antecubital; mt4 07:06 Follow up: Response: No adverse reaction mt4 06:20 Drug: Ketorolac IVP 30 mg IVP once Route: IVP; Site: right antecubital; mt4 07:06 Follow up: Response: No adverse reaction mt4 06:40 Drug: NS 0.9% IV 1000 ml IV at 125 ml/hr Per protocol; to be given as a bolus over 60 mt4 minutes Route: IV; Rate: 125 ml/hr; Site: right antecubital; 07:06 Follow up: Response: No adverse reaction; IV Status: Infusion continued mt4 11:25 Follow up: orders to continue infusion upon tranfer rs5 06:56 Drug: fentaNYL (PF) IVP 50 mcg IVP once Route: IVP; Site: right antecubital; mt4 07:20 Follow up: Response: No adverse reaction; Pain is decreased rs5 08:15 Drug: Famotidine IVP 20 mg IVP once; dilute with 10 mL 0.9% NaCl; give over 2 minutes rs5 Route: IVP; Site: right antecubital; 08:34 Follow up: Response: No adverse reaction rs5 08:15 Drug: foLIC Acid IVPB 1 mg IVPB once Route: IVPB; Site: right antecubital; rs5 08:30 Follow up: Response: No adverse reaction rs5 08:52 Drug: HYDROmorphone IVP 1 mg IVP once Route: IVP; Site: right antecubital; rs5 09:20 Follow up: Response: No adverse reaction; Pain is decreased rs5 Disposition Summary: 01/30/24 08:16 Transfer Ordered Notes: Transfer Location: [facility] wilma Reason: Higher level of care wilma Condition: Stable wilma Problem: new wilma Symptoms: have improved wilma Accepting Physician: to [facility](01/30/24 09:50) rs5 Diagnosis - Low back pain wilma - Other sickle-cell disorders with crisis wilma - Anemia, unspecified wilma - Acute kidney failure, unspecified wilma Forms: - Medication Reconciliation Form wilma - SBAR form wilma Signatures: Dispatcher [employer] EDAdam Bethea MD MD cha Botello, Elizabeth eb Sotelo, Ricky, RN RN rs5 Diego Lomeli MD MD sp4 Belkis Rodas RN RN mt4 Izabela Aguilar RN RN al5 Corrections: (The following items were deleted from the chart) 06:04 06:04 RETIC COUNT+H.LAB.BRZ ordered. EDMS EDMS 06:04 06:04 BASIC METABOLIC PANEL+C.LAB.BRZ ordered. EDMS EDMS 06:04 06:04 CBC+H.LAB.BRZ ordered. EDMS EDMS 06:04 06:04 HEPATIC FUNCTION+C.LAB.BRZ ordered. EDMS EDMS 06:04 06:04 MAGNESIUM+C.LAB.BRZ ordered. EDMS EDMS 06:04 06:04 PROBNP+C.LAB.BRZ ordered. EDMS EDMS 06:04 06:04 PROTIME (+INR)+COAG.LAB.BRZ ordered. EDMS EDMS 06:04 06:04 Troponin High Sensitivity+C.LAB.BRZ ordered. EDMS EDMS 06:04 06:04 Chest Single View+RAD.RAD.BRZ ordered. EDMS EDMS 06:05 06:05 LACTIC DEHYDROGENASE+C.LAB.BRZ ordered. EDMS EDMS 07:57 07:57 TYPE AND SCREEN+BB.LAB.BRZ ordered. EDMS EDMS 08:20 06:06 Chest Abdomen Pelvis W Con+CT.RAD.BRZ ordered. EDMS EDMS 09:50 08:[address] [facility] rs5
--- NOTE | 2024-01-30 08:37 | RAD REPORT ---
EXAM: CT CHEST, ABDOMEN AND PELVIS WITHOUT CONTRAST CLINICAL INDICATION: Male, 53 years old lower back pain TECHNIQUE: CT chest, abdomen and pelvis was performed, without IV contrast[facility] Axial, sagittal and coronal reconstructions were obtained. One or more of the following dose reduction techniques were used: Automated exposure control, adjustment of the mA and/or kV according to the patient size, and/or iterative reconstruction. Unless otherwise specified, incidental findings do not require dedicated imaging follow-up. [id number]. COMPARISON: Chest CT 01/26/2023, CT abdomen 12/06/2021 FINDINGS: The lack of intravenous contrast limits the sensitivity of this exam for evaluation of solid visceral organs, vascular structures, and retroperitoneum. Chest: LOWER NECK/CHEST WALL: Visualized thyroid gland and soft tissues are normal. LUNGS AND AIRWAYS: Scattered areas of mild scarring. No acute process identified. A few small irregul ar pulmonary nodules are present bilaterally but which have a benign configuration. PLEURA: No pleural effusion. No pneumothorax. Hemidiaphragms are normally positioned. MEDIASTINUM AND LYMPH NODES: No lymphadenopathy. Mild thickening distal esophagus bone infarcts.. THORACIC AORTA: Normal caliber and configuration. PULMONARY ARTERIES: Normal caliber. HEART: Cardiomegaly. Coronary artery consultations are present which are mild. Abdomen/Pelvis LIVER: Normal in size and contour. No focal lesion. GALLBLADDER/BILE DUCTS: Cholelithiasis. No CT evidence of acute cholecystitis. PANCREAS: No mass, ductal dilation, or genoveva-pancreatic fluid. SPLEEN: Autoinfarcted hyperdense spleen. ADRENALS: Normal; no mass. KIDNEYS AND URETERS: Normal size and contour. No hydronephrosis. GASTROINTESTINAL TRACT: Stomach is non-dilated. Small bowel has normal course and caliber. No colonic wall thickening or pericolonic inflammatory changes. Normal appendix. PERITONEUM: No free fluid. LYMPH NODES: No lymphadenopathy. ABDOMINAL AORTA AND OTHER VESSELS: Normal caliber aorta and IVC. URINARY BLADDER: Normal contour. REPRODUCTIVE ORGANS: No pathologic process. MUSCULOSKELETAL: Widespread sclerotic changes present throughout the bony structures may be from emmanuel te bone infarcts in this patient with history of sickle cell disease. Advanced degenerative changes are present at the right hip. Mild endplate irregularity present at some of the lower lumbar levels i s unchanged. ADDITIONAL FINDINGS: None IMPRESSION: No acute findings in the chest, abdomen, or pelvis. Findings consistent with known sickle cell disease including autoinfarcted spleen and widespread osse ous changes that may be due to chronic/remote bone infarcts. No acute fracture. A new superimposed bony infarct would not be visible on CT. No fractures identified, however.
[2024-01-30 08:49] LABS: Anisocytosis 2+; Atypical Lymphocytes 3 %; Blood Morphology Comment NOTED (NOT SEEN); Differential Total Cells Count 100; Lymphocytes 15 % (15-42); Metamyelocytes 3 % (0-0); Microcytosis 1+; Monocytes 16 % (0-10); Nucleated Red Blood Cells 30 /100WBC; Platelet Estimate ADEQ; Polychromasia 1+; Segmented Neutrophils 63 % (40-80)
[2024-01-30 08:50] LABS: Howell-Jolly Bodies NOTED; Hypochromasia 1+; Poikilocytosis 3+
--- NOTE | 2024-01-30 08:57 | RAD REPORT ---
Abdomen Exam Limited: 01/30/2024 8:30 AM CLINICAL HISTORY: elevated lft STUDY: Limited right upper quadrant ultrasound of abdomen. COMPARISON: Same day CT of the abdomen FINDINGS: Liver: No significant abnormality. Bile ducts: No intrahepatic or extrahepatic biliary dilatation. Common bile duct measures 4 mm. Gallbladder: Cholelithiasis is present. No gallbladder wall thickening. No pericholecystic fluid or s onographic Cortes sign. IMPRESSION: Cholelithiasis but no acute cholecystitis identified.
[2024-01-30 09:06] LABS: Specific Gravity 1.018 (1.005-1.030); Sqamous Epithelial <5 /HPF (None Seen); Urine Bacteria None Seen /HPF (<20); Urine Bilirubin NEGATIVE (Negative); Urine Blood 2+ (Negative); Urine Clarity Extremely Turbid (Clear); Urine Color Yellow (Yellow); Urine Culture Reflex Order NOT NEEDED; Urine Glucose NEGATIVE (Negative); Urine Ketones NEGATIVE (Negative); Urine Microscopic Reflex YN ORDER UMIC; Urine Mucus 1+ /HPF (None Seen); Urine Nitrite NEGATIVE (Negative); Urine Protein 2+ (Negative); Urine Urobilinogen 1+ (Normal); Urine pH 5.5 (5.0-7.0)
[2024-01-30 09:58] VITALS: TEMP 97.6
[2024-01-30 10:08] VITALS: BP 119/78; O2SAT 87
--- NOTE | 2024-01-31 07:01 | RAD REPORT ---
EXAMINATION: ONE VIEW CHEST XR CLINICAL INDICATION: CHEST PAIN TECHNIQUE: Frontal chest projection is submitted. Examination is limited by patient positioning and t echnique. COMPARISON: 01/26/2023 FINDINGS: Moderate bilateral pulmonary opacities noted, slightly less prominent than on comparison study, favor ed to be chronic. The heart is moderately enlarged. Osteosclerotic changes are seen, most notable
--- NOTE | 2024-01-31 13:06 | EKG ---
Test Date: 2024-01-30 Test Time: 06:26:57 [employer] Head[employer] Mechanic: WILFRED MEASUREMENT RESULTS: Intervals: Rate: 76 IN: 178 QRSD: 98 QT: 404 QTc: 454 [place]: P: 67 IN: 178 QRS: 49 T: 48 INTERPRETIVE STATEMENTS: Sinus rhythm with occasional premature ventricular complexes Otherwise normal ECG Compared to ECG 01/26/2023 12:18:14 Ventricular premature complex(es) now present T-wave abnormality no longer present Electronically Signed On 01-31-24 13:04:16 DENTIST ATTENDANT by Naresh Juarez
== END 2024-01-30 09:50 | disposition short-term general hospital (02) ==
LOC: ER 05:36
DX: D57.00 Hb-SS disease with crisis, unspecified (principal); D64.9 Anemia, unspecified; N17.9 Acute kidney failure, unspecified
CPT/HCPCS: 36415; 71045; 71250; 74176; 76705; 80048; 80076; 81001; 83615; 83690; 83735; 83880; 84484; 85025; 85044; 85610; 93005; 96361; 96374; 96375; 99285; J1171; J2405; J3010; J7030